=== PATIENT | male | born 1985 | race Caucasian/White ===

== ENCOUNTER 2016-11-22 14:13 | Observation (INO) | payer OTHER ==
[2016-11-22 14:22] VITALS: RESP 18; TEMP 97.8; BMI 31.6
[2016-11-22] MEDS ORDERED: Morphine 4 mg/ml ISec IVP STA (15:48)
--- NOTE | 2016-11-22 15:49 | ED PDOC ---
Arrival/HPI <Charli Caldwell - Last Filed: 11/22/16 21:07> - General Historian: Patient - History of Present Illness Time/Duration: < week Symptom Onset: Gradual Symptom Course: Unchanged Severity Level: Mild Activities at Onset: Rest Context: Home <Timmy Rossi - Last Filed: 12/03/16 10:10> - General Chief Complaint: GI Problem Time Seen by Provider: 11/22/16 14:48 - History of Present Illness Narrative History of Present Illness (Text): 11/22/16 14:55 Heidi Rasmussen is a 31 year old male, whose past medical history includes appendicitis, appendectomy, and a partial small bowel obstruction, who presents to the emergency department complaining of constipation for four fays. Patient notes that he has not had a bowel movement in the last four days as well. Patient also experiences associated headache and nausea. Patient denies any fever, vomiting, urinary symptoms, or any other complaint at this time. PMD: None (Timmy Rossi) Past Medical History - Provider Review Nursing Documentation Reviewed: Yes - Infectious Disease Hx of Infectious Diseases: None - Tetanus Immunization Tetanus Immunization: Unknown - Reproductive Currently : No - Cardiac Hx Cardiac Disorders: No - Pulmonary Hx Respiratory Disorders: No - Neurological Hx Neurological Disorder: No - HEENT Hx HEENT Disorder: No - Renal Hx Renal Disorder: No - Endocrine/Metabolic Hx Endocrine Disorders: No - Hematological/Oncological Hx Blood Transfusions: No Hx Blood Transfusion Reaction: No - Integumentary Hx Dermatological Disorder: No - Musculoskeletal/Rheumatological Hx Musculoskeletal Disorders: No Hx Falls: No - Gastrointestinal Hx Gastrointestinal Disorders: No - Genitourinary/Gynecological Hx Genitourinary Disorders: No - Psychiatric Hx Psychophysiologic Disorder: No Hx Substance Use: No - Surgical History Hx Appendectomy: Yes - Anesthesia Hx Anesthesia: Yes Hx Anesthesia Reactions: No Hx Malignant Hyperthermia: No <Timmy Rossi - Last Filed: 12/03/16 10:10> Family/Social History - Physician Review Nursing Documentation Reviewed: Yes Family/Social History: No Known Family HX Smoking Status: Never Smoked Hx Alcohol Use: No Hx Substance Use: No <Timmy Rossi - Last Filed: 12/03/16 10:10> Allergies/Home Meds <Charli Caldwell - Last Filed: 11/22/16 21:07> <Timmy Rossi Y - Last Filed: 12/03/16 10:10> Allergies/Adverse Reactions: Allergies No Known Allergies Allergy (Verified 11/22/16 14:22) Review of Systems - Review of Systems Constitutional: absent: Fevers, Night Sweats Eyes: absent: Vision Changes ENT: absent: Hearing Changes Respiratory: absent: SOB Cardiovascular: absent: Chest Pain Gastrointestinal: Constipation, Nausea. absent: Abdominal Pain, Vomiting Genitourinary Male: absent: Urinary Output Changes Musculoskeletal: absent: Back Pain, Neck Pain Skin: absent: Pruritis Neurological: absent: Dizziness Endocrine: absent: Polyuria Hemo/Lymphatic: absent: Easy Bleeding Psychiatric: absent: Depression <Timmy Rossi Y - Last Filed: 12/03/16 10:10> Physical Exam Vital Signs Reviewed: Yes Temperature: Afebrile Blood Pressure: Normal Pulse: Regular Respiratory Rate: Normal Appearance: Positive for: Well-Appearing, Non-Toxic, Comfortable Pain Distress: None Mental Status: Positive for: Alert and Oriented X 3 - Systems Exam Head: Present: Atraumatic, Normocephalic Pupils: Present: PERRL Extroacular Muscles: Present: EOMI Conjunctiva: Present: Normal Mouth: Present: Moist Mucous Membranes Neck: Present: Normal Range of Motion Respiratory/Chest: Present: Clear to Auscultation, Good Air Exchange. No: Respiratory Distress, Accessory Muscle Use Cardiovascular: Present: Regular Rate and Rhythm, Normal S1, S2. No: Murmurs Abdomen: Present: Tenderness (Slgiht suprapubic tenderness) Back: Present: Normal Inspection Upper Extremity: Present: Normal Inspection. No: Cyanosis, Edema Lower Extremity: Present: Normal Inspection. No: Edema Neurological: Present: GCS=15, CN II-XII Intact, Speech Normal Skin: Present: Warm, Dry, Normal Color. No: Rashes Psychiatric: Present: Alert, Oriented x 3, Normal Insight, Normal Concentration <Timmy Rossi Y - Last Filed: 12/03/16 10:10> Vital Signs Temp Pulse Resp BP Pulse Ox 11/22/16 21:00 60 18 113/76 98 11/22/16 19:30 57 L 18 118/81 99 11/22/16 16:36 61 18 128/98 H 99 11/22/16 14:17 97.8 F 66 18 110/68 98 ED OBSERVATION Discharge: Yes <Charli Caldwell - Last Filed: 11/22/16 21:07> Date of observation admission: 11/22/16 Time of observation admission: 14:55 <Timmy Rossi - Last Filed: 12/03/16 10:10> - Observation admission statement Patient is being placed in observation because:: Impression: 31 year old male complaining of constipation for four days. (Timmy Rossi) - Goals of Observation Goals of observation are:: Plan: -- EKG -- Abdomen and Pelvis CT w/ CT -- Urine culture, Urinalysis -- Labs -- Tylenol. Pepcid, Morphine, Zofran, and Fleet Enema -- Reassess and disposition Prior Visits: Notes and results from previous visits were reviewed. Patient last seen in ED on 03/21/16 for abdominal pain and headache for one day. Patient was admitted to hospitalist care for further evaluation. (Timmy Rossi) - Progress Note Progress Note: 11/22/16 19:45 sign out from day shift to follow up CT pt with abd pain and hx of prior surgeries on examination, abd soft/nt/nd with positive bowel sounds in all 4 q's and no peritoneal signs CT result pending pt's friend translating per his request 11/22/16 20:47 No acute findings on CT result, as per [facility] On reevaluation, patient reports that he feels much better and would like to be discharged home. Patient's repeat abdominal exam is soft, nontender, non distended with positive bowel sounds in all 4 quadrants and no peritoneal signs. Patient is tolerating PO without any difficulty. Pt denies any FRIAS at this time, has no focal neurological deficits on evaluation Pt states he understands to return to the ER right away for new or worsening symptoms or for inability to f/u with PMD or specialist as instructed. Patient states that he fully agrees with and understands discharge instructions. States that he agrees with the plan and disposition. Verbalized and repeated discharge instructions and plan. I have given the patient opportunity to ask any additional questions. (Charli Caldwell) Reviewed labs, results are normal. 11/22/16 18:40 On re-evaluation, the patient feels better and is in no acute distress. I have discussed the results and plan with the patient, who expresses understanding. Patient in agreement with plan to discharged home. Patient is stable for discharge. Patient was instructed to follow up with physician/clinic in 1-2 days or return if symptoms worsen or new concerning symptoms arise. (Timmy Rossi) <Charli Caldwell - Last Filed: 11/22/16 21:07> - Scribe Statement The provider has reviewed the documentation as recorded by the Scribe <Timmy Rossi - Last Filed: 12/03/16 10:10> - Scribe Statement Amee Lozoya Provider Scribe Attestation: All medical record entries made by the Scribe were at my direction and personally dictated by me. I have reviewed the chart and agree that the record accurately reflects my personal performance of the history, physical exam, medical decision making, and the department course for this patient. I have also personally directed, reviewed, and agree with the discharge instructions and disposition. (Timmy Rossi) Disposition/Present on Arrival - Present on Arrival Any Indicators Present on Arrival: No - Disposition Have Diagnosis and Disposition been Completed?: Yes Disposition Time: 14:00 Patient Plan: Discharge <Charli Caldwell - Last Filed: 11/22/16 21:07> - Present on Arrival History of DVT/PE: No History of Uncontrolled Diabetes: No Urinary Catheter: No History of Decub. Ulcer: No History Surgical Site Infection Following: None - Disposition Have Diagnosis and Disposition been Completed?: Yes Disposition Time: 15:00 <Timmy Rossi - Last Filed: 12/03/16 10:10> - Disposition Diagnosis: Abdominal pain Disposition: HOME/ ROUTINE Condition: GOOD
[2016-11-22] MEDS ORDERED: Iohexol 240 (50 ml) ONE (16:15)
[2016-11-22 16:35] LABS: URINE BILIRUBIN NEGATIVE (NEGATIVE); URINE BLOOD NEGATIVE (NEGATIVE); URINE GLUCOSE (UA) NEGATIVE (NEGATIVE); URINE KETONE NEGATIVE (NEGATIVE); URINE LEUKOCYTE ESTERASE NEGATIVE Leu/uL (NEGATIVE); URINE PROTEIN TRACE mg/dL (<30 mg/dL); URINE UROBILINOGEN 0.2 E.U./dL (<1 E.U./dL)
[2016-11-22 16:39] LABS: ADD MANUAL DIFF? NO
[2016-11-22 16:42] LABS: BASO # 0.02 K/mm3 (0.0-2.0); BASO % 0.3 % (0.0-3.0); EOS # 0.3 (0.0-0.7); EOS % 4.3 % (1.5-5.0); GRAN % 51.2 % (50.0-68.0); HEMATOCRIT 43.9 % (42.0-52.0); LYMPH # 2.5 (1.2-3.4); LYMPH % 35.8 % (22.0-35.0); MEAN CELL VOLUME 81.6 fL (80.0-105.0); MEAN CORPUSCULAR HEMOGLOBIN 29.4 pg (25.0-35.0); MONO # 0.6 (0.1-0.6); MONO % 8.4 % (1.0-6.0); PLATELET COUNT 291 10^3/uL (120.0-450.0); RED CELL DISTRIBUTION WIDTH 12.6 % (11.5-14.5)
[2016-11-22 16:44] LABS: URINE APPEARANCE CLEAR (CLEAR); URINE COLOR YELLOW (YELLOW)
[2016-11-22 16:55] LABS: URINE BACTERIA TRACE (NEG); URINE CALCIUM OXALATE CRYSTALS OCC /hpf; URINE EPITHELIAL CELLS 0 - 2 /hpf (0-5); URINE RBC 0 - 2 /hpf (0-2); URINE WBC 0 - 2 /hpf (0-6)
[2016-11-22 16:56] LABS: ALB/GLOB RATIO 1.4 (1.1-1.8); ALKALINE PHOSPHATASE 58 U/L (38-133); ALT/SGPT 32 U/L (7-56); AST/SGOT 31 U/L (15-59); BILIRUBIN,TOTAL 0.7 mg/dL (0.2-1.3); BLOOD UREA NITROGEN 20 mg/dL (7-21); CALCIUM 9.8 mg/dL (8.4-10.5); CARBON DIOXIDE 29 mmol/L (21-33); CHLORIDE 104 mmol/L (98-107); GFR AFRICAN-AMERICAN > 60; GLUCOSE,RANDOM 88 mg/dL (70-110); POTASSIUM 4.1 mmol/L (3.6-5.0); SODIUM 142 mmol/L (132-148); TOTAL PROTEIN 7.8 g/dL (5.8-8.3)
--- NOTE | 2016-11-22 18:16 | CARD ---
APPROVED REPORT EKG Measurement Heart [id number] <Conclusion> Sinus bradycardia Otherwise normal ECG
--- NOTE | 2016-11-22 20:22 | CT ---
EXAM: CT Abdomen and Pelvis With Intravenous Contrast CLINICAL HISTORY: 31 years old, male; Pain; Abdominal pain; Prior surgery; Surgery type: Appendectomy TECHNIQUE: Axial computed tomography images of the abdomen and pelvis with intravenous contrast. This CT exam was performed using one or more of the following dose reduction techniques: automated exposure control, adjustment of the mA and/or kV according to patient size, and/or use of iterative reconstruction technique. Coronal and sagittal reformatted images were created and reviewed. CONTRAST: 96 mL of OMNI 350 administered intravenously. EXAM DATE/TIME: 11/22/2016 3:49 PM COMPARISON: Prior CT abdomen and pelvis of 03/21/2016 FINDINGS: LIMITATIONS: Exam is limited by mild to moderate streak/motion artifact. LOWER THORAX: No infiltrate seen in the lung bases. ABDOMEN: LIVER: No acute abnormality of the liver identified. GALLBLADDER AND BILE DUCTS: No CT evidence of acute cholecystitis. No evidence of significant biliary ductal dilatation. PANCREAS: No CT evidence of acute pancreatitis. SPLEEN: No acute abnormality of the spleen identified. ADRENALS: No acute abnormality of the adrenal glands identified. KIDNEYS AND URETERS: No acute abnormality of the kidneys identified. No evidence of significant hydrouereteronephrosis. STOMACH AND BOWEL: No acute abnormality of the stomach or duodenum identified. No evidence of small bowel obstruction. No acute abnormality of the colon identified. APPENDIX: Normal appendix is not seen, and there are post operative changes involving the cecum compatible with the given history of previous appendectomy. PELVIS: BLADDER: No acute abnormality of the bladder identified. REPRODUCTIVE: No acute abnormality of the reproductive organs is seen. ABDOMEN and PELVIS: INTRAPERITONEAL SPACE: No evidence of free intraperitoneal air or fluid. BONES/JOINTS: Mild anterior wedge deformity of T12, stable in appearance, most likely secondary to a mild, chronic compression fracture. No acute fractures are seen. SOFT TISSUES: No acute abnormality of the visualized soft tissues is seen. VASCULATURE: No evidence of abdominal aortic aneurysm. No evidence of periaortic hemorrhage. LYMPH NODES: No evidence of diffuse lymphadenopathy. IMPRESSION: - No evidence of significant acute process. No definite cause for pain identified. - See above for remaining findings.
[2016-11-22 21:28] VITALS: BP 113/76; PULSE 60; O2SAT 98
== END 2016-11-22 20:53 | disposition home or self-care (01) ==
LOC: ED 14:13 → EROBSV 15:51
PROVIDERS: ADMIT Emergency Medicine; ATTEND Emergency Medicine
DX: R10.9 Unspecified abdominal pain (principal)
CPT/HCPCS: 74177; 80053; 81001; 85025; 87086; 93005; 96374; 96375; 99284; G0378; J2270; J2405; Q9966

== ENCOUNTER 2017-07-14 18:58 | Emergency (ER) | payer OTHER ==
[2017-07-14 18:58] VITALS: BMI 31.6
--- NOTE | 2017-07-14 19:16 | ED PDOC ---
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 No cough congestion or URI. No fever or chills. No injury or trauma. He has never experienced this previously. No abdominal pain nausea vomiting or diarrhea. Past Medical History - Infectious Disease Hx of Infectious Diseases: None - Tetanus Immunization Tetanus Immunization: Unknown - Cardiac Hx Cardiac Disorders: No - Pulmonary Hx Respiratory Disorders: No - Neurological Hx Neurological Disorder: No - HEENT Hx HEENT Disorder: No - Renal Hx Renal Disorder: No - Endocrine/Metabolic Hx Endocrine Disorders: No - Hematological/Oncological Hx Blood Transfusions: No Hx Blood Transfusion Reaction: No - Integumentary Hx Dermatological Disorder: No - Musculoskeletal/Rheumatological Hx Musculoskeletal Disorders: No Hx Falls: No - Gastrointestinal Hx Gastrointestinal Disorders: No - Genitourinary/Gynecological Hx Genitourinary Disorders: No - Psychiatric Hx Psychophysiologic Disorder: No Hx Substance Use: No - Surgical History Hx Appendectomy: Yes - Anesthesia Hx Anesthesia: Yes Hx Anesthesia Reactions: No Hx Malignant Hyperthermia: No Family/Social History - Physician Review Nursing Documentation Reviewed: Yes Family/Social History: Unknown Family HX Smoking Status: Never Smoked Hx Alcohol Use: No Hx Substance Use: No Allergies/Home Meds Allergies/Adverse Reactions: Allergies No Known Allergies Allergy (Verified 07/14/17 19:15) Review of Systems - Physician Review All systems were reviewed & negative as marked: Yes - Review of Systems Constitutional: absent: Fatigue, Fevers Respiratory: SOB. absent: Cough, Sputum, Wheezing Cardiovascular: Chest Pain. absent: Palpitations, Syncope Gastrointestinal: absent: Abdominal Pain, Diarrhea, Nausea, Vomiting Neurological: absent: Headache, Dizziness Physical Exam Vital Signs Temp Pulse Resp BP Pulse Ox 07/14/17 19:03 97.6 F 94 H 18 157/84 H 97 07/14/17 19:00 17 Temperature: Afebrile Blood Pressure: Hypertensive Pulse: Regular Respiratory Rate: Normal Appearance: Positive for: Well-Appearing, Non-Toxic, Comfortable, Other ( Splinting during breathing) Pain Distress: None Mental Status: Positive for: other (Awake alert and cooperative) - Systems Exam Head: Present: Atraumatic, Normocephalic Pupils: Present: PERRL Extroacular Muscles: Present: EOMI Conjunctiva: Present: Normal Ears: Present: NORMAL TM, Normal Canal. No: Erythema Mouth: Present: Moist Mucous Membranes Pharnyx: No: ERYTHEMA, EXUDATE, TONSILS ENLARGED Neck: Present: Normal Range of Motion Respiratory/Chest: Present: Clear to Auscultation, Good Air Exchange, Decreased Breath Sounds. No: Respiratory Distress, Accessory Muscle Use Cardiovascular: Present: Regular Rate and Rhythm, Normal S1, S2. No: Murmurs Abdomen: Present: Normal Bowel Sounds. No: Tenderness, Distention, Peritoneal Signs, Rebound, Guarding Back: Present: Normal Inspection. No: CVA Tenderness Upper Extremity: Present: Normal Inspection. No: Cyanosis, Edema Lower Extremity: Present: Normal Inspection. No: Edema Neurological: Present: GCS=15, CN II-XII Intact, Speech Normal, Motor Func Grossly Intact Skin: Present: Warm, Dry, Normal Color. No: Rashes Medical Decision Making ED Course and Treatment: 07/14/17 19:17 EKG shows normal sinus rhythm rate approximately [address] or T-wave changes 07/14/17 20:45 Symptoms have resolved. Discharge home with roommate. Follow-up with PMD. Follow -up in ER as needed. - Lab Interpretations Lab Results: 07/14/17 19:20 07/14/17 19:20 Lab Results 07/14/17 19:20: Sodium 142, Potassium 3.9, Chloride 104, Carbon Dioxide 27, Anion Gap 15, BUN 21, Creatinine 0.8, Est GFR ( Amer) > 60, Est GFR (Non- Af Amer) > 60, Random Glucose 119 H, Calcium 9.7, Total Bilirubin 0.5, AST 27, ALT 30, Alkaline Phosphatase 54, Lactate Dehydrogenase 319 L, Total Creatine Kinase 87, Troponin I < 0.01, NT-Pro-B Natriuret Pep < 11.1, Total Protein 8.0, Albumin 4.6, Globulin 3.3, Albumin/Globulin Ratio 1.4 07/14/17 19:20: PT 11.8, INR 1.03, APTT 34.6, D-Dimer, Quantitative < 200 07/14/17 19:20: WBC 7.2, RBC 5.48, Hgb 15.6, Hct 44.5, MCV 81.2, MCH 28.5, MCHC 35.1, RDW 12.7, Plt Count 271, MPV 10.3, Gran % 49.0 L, Lymph % (Auto) 37.7 H, [place] % (Auto) 9.1 H, Eos % (Auto) 3.9, Baso % (Auto) 0.3, Gran # 3.54, Lymph # 2.7, [place] # 0.7 H, Eos # 0.3, Baso # 0.02 - RAD Interpretation Radiology Orders: 07/14/17 19:16 CHEST PORTABLE [RAD] Stat Chest 1 view shows no infiltrate effusion cardiomegaly or pneumothorax Product Safety Coordinator: ED Physician - Medication Orders Current Medication Orders: Discontinued Medications Ketorolac Tromethamine (Toradol) 30 mg IVP ONCE ONE Stop: 07/14/17 19:18 Last Admin: 07/14/17 19:34 Dose: 30 mg MAR Pain Assessment Document 07/14/17 19:34 AB (Rec: 07/14/17 19:35 AB [id number]) Pain Reassessment Is this a pain reassessment? Yes Sleep Is patient sleeping during reassessment? No Presence of Pain Presence of Pain Yes Pain Scale Used Pain Scale Used Numeric Location Pain Location Body Site Chest Description Description Constant Intensity of Pain at present 6 Pain Behavior Guarding Aggravating Factors ADL's Alleviating Factors/Management Medication Techniques Alleviating Factors Medication IVP Administration Document 07/14/17 19:34 AB (Rec: 07/14/17 19:35 AB [id number]) Charges for Administration # of IVP Administrations 1 Disposition/Present on Arrival - Present on Arrival Any Indicators Present on Arrival: No History of DVT/PE: No History of Uncontrolled Diabetes: No Urinary Catheter: No History of Decub. Ulcer: No History Surgical Site Infection Following: None - Disposition Have Diagnosis and Disposition been Completed?: Yes Diagnosis: Pleurisy Disposition: HOME/ ROUTINE Disposition Time: 20:46 Patient Plan: Discharge Condition: IMPROVED Discharge Instructions (ExitCare): Pleurisy (ED) Prescriptions: Naproxen [Naprosyn] 500 mg PO BID #14 tab Forms: [employer] ([place])
[2017-07-14 19:58] LABS: HEMOGLOBIN 15.6 g/dL (14.0-18.0); MEAN CELL VOLUME 81.2 fl (80.0-105.0); MEAN CORPUSCULAR HEMOGLOBIN 28.5 pg (25.0-35.0); MEAN CORPUSCULAR HGB CONC 35.1 g/dl (31.0-37.0); MEAN PLATELET VOLUME 10.3 fl (7.0-11.0); RBC 5.48 10^6/uL (3.5-6.1); RED CELL DISTRIBUTION WIDTH 12.7 % (11.5-14.5); WHITE BLOOD COUNT 7.2 10^3/ul (4.5-11.0)
[2017-07-14 19:59] LABS: BASO # 0.02 K/mm3 (0.0-2.0); BASO % 0.3 % (0.0-3.0); EOS # 0.3 (0.0-0.7); EOS % 3.9 % (1.5-5.0); GRAN # 3.54 (1.4-6.5); LYMPH # 2.7 (1.2-3.4); LYMPH % 37.7 % (22.0-35.0); MONO # 0.7 (0.1-0.6); MONO % 9.1 % (1.0-6.0)
[2017-07-14 20:00] LABS: ALB/GLOB RATIO 1.4 (1.1-1.8); ALBUMIN 4.6 g/dL (3.0-4.8); ALT/SGPT 30 U/L (7-56); AST/SGOT 27 U/L (17-59); BLOOD UREA NITROGEN 21 mg/dL (7-21); CALCIUM 9.7 mg/dL (8.4-10.5); GFR AFRICAN-AMERICAN > 60; GFR NON-AFRICAN AMERICAN > 60
[2017-07-14 20:07] LABS: INR 1.03 (0.93-1.08); PARTIAL THROMBOPLASTIN TIME 34.6 Seconds (25.1-36.5); PROTHROMBIN TIME 11.8 SECONDS (9.4-12.5)
[2017-07-14 20:10] LABS: B-TYPE NATRIURETIC PEPTIDE < 11.1 pg/mL (0-450)
[2017-07-14 20:14] LABS: TROPONIN I < 0.01 ng/mL
[2017-07-14 20:26] LABS: D DIMER < 200 ng/mL (0-243)
[2017-07-14 20:55] VITALS: BP 150/72; PULSE 80; RESP 16; TEMP 98.2; O2SAT 100
--- NOTE | 2017-07-15 09:01 | RAD ---
HISTORY: Chest pain COMPARISON: 11/19/2015. FINDINGS: LUNGS: The lungs are clear. PLEURA: No significant pleural effusion identified, no pneumothorax apparent. CARDIOVASCULAR: Normal. OSSEOUS STRUCTURES: No significant abnormalities. VISUALIZED UPPER ABDOMEN: Normal. OTHER FINDINGS: None. IMPRESSION: No active pulmonary disease.
--- NOTE | 2017-07-15 16:53 | CARD ---
APPROVED REPORT EKG Measurement Heart [id number] <Conclusion> Normal sinus rhythm Normal ECG
== END 2017-07-14 20:55 | disposition home or self-care (01) ==
LOC: ED 18:58
DX: R09.1 Pleurisy (principal)
CPT/HCPCS: 71045; 80053; 82550; 83615; 83880; 84484; 85025; 85378; 85610; 85730; 93005; 96374; 99283; J1885

== ENCOUNTER 2017-10-08 21:39 | Emergency (ER) | payer OTHER ==
[2017-10-08 21:52] VITALS: BMI 25.7
[2017-10-08 21:57] VITALS: BP 121/77; PULSE 66; RESP 18; TEMP 97.6; O2SAT 97
--- NOTE | 2017-10-08 22:12 | ED PDOC ---
Arrival/HPI - General Chief Complaint: Abnormal Skin Integrity Time Seen by Provider: 10/08/17 22:08 Historian: Patient - History of Present Illness Narrative History of Present Illness (Text): 10/08/17 22:12 Heidi Méndez is a 32 year old male who presents to the Emergency department complaining of a left thumb laceration. Patient states he accidentally sliced his left thumb while using a knife prior to arrival. Patient denies any decreased range of motion, weakness/numbness/tingling in the extremity, or any other complaints. Time/Duration: Prior to Arrival Symptom Onset: Sudden Symptom Course: Unchanged Activities at Onset: Light Past Medical History - Provider Review Nursing Documentation Reviewed: Yes - Infectious Disease Hx of Infectious Diseases: None - Tetanus Immunization Tetanus Immunization: Unknown - Cardiac Hx Cardiac Disorders: No - Pulmonary Hx Respiratory Disorders: No - Neurological Hx Neurological Disorder: No - HEENT Hx HEENT Disorder: No - Renal Hx Renal Disorder: No - Endocrine/Metabolic Hx Endocrine Disorders: No - Hematological/Oncological Hx Blood Transfusions: No Hx Blood Transfusion Reaction: No - Integumentary Hx Dermatological Disorder: No - Musculoskeletal/Rheumatological Hx Musculoskeletal Disorders: No Hx Falls: No - Gastrointestinal Hx Gastrointestinal Disorders: No - Genitourinary/Gynecological Hx Genitourinary Disorders: No - Psychiatric Hx Psychophysiologic Disorder: No Hx Substance Use: No - Surgical History Hx Appendectomy: Yes - Anesthesia Hx Anesthesia: Yes Hx Anesthesia Reactions: No Hx Malignant Hyperthermia: No Family/Social History - Physician Review Nursing Documentation Reviewed: Yes Family/Social History: Unknown Family HX Smoking Status: Never Smoked Hx Alcohol Use: No Hx Substance Use: No Allergies/Home Meds Allergies/Adverse Reactions: Allergies No Known Allergies Allergy (Verified 10/08/17 21:52) Review of Systems - Physician Review All systems were reviewed & negative as marked: Yes - Review of Systems Constitutional: Normal. absent: Fevers Eyes: Normal ENT: Normal Respiratory: Normal. absent: SOB, Cough Cardiovascular: Normal. absent: Chest Pain Gastrointestinal: Normal. absent: Abdominal Pain, Diarrhea, Nausea, Vomiting Genitourinary Male: Normal. absent: Dysuria, Frequency, Hematuria, Urinary Output Changes, Other Musculoskeletal: Normal. absent: Back Pain, Neck Pain Skin: Laceration (+left thumb laceration) Neurological: Normal. absent: Headache, Dizziness Endocrine: Normal Hemo/Lymphatic: Normal Psychiatric: Normal Physical Exam Vital Signs Reviewed: Yes Vital Signs Temp Pulse Resp BP Pulse Ox 10/08/17 21:56 97.6 F 66 18 121/77 97 Temperature: Afebrile Blood Pressure: Normal Pulse: Regular Respiratory Rate: Normal Appearance: Positive for: Well-Appearing, Non-Toxic, Comfortable Pain Distress: None Mental Status: Positive for: Alert and Oriented X 3 - Systems Exam Head: Present: Atraumatic, Normocephalic Pupils: Present: PERRL Extroacular Muscles: Present: EOMI Conjunctiva: Present: Normal Mouth: Present: Moist Mucous Membranes Neck: Present: Normal Range of Motion Upper Extremity: Present: Normal ROM, NORMAL PULSES, Neurovascularly Intact, Capillary Refill < 2s, Other (2.5 cm laceration lateral aspect of left thumb). No: Cyanosis, Edema, Tenderness, Swelling, Erythema, Temperature Abnormalties, Deformity Lower Extremity: Present: Normal Inspection. No: Edema Neurological: Present: GCS=15, CN II-XII Intact, Speech Normal Skin: Present: Warm, Dry, Normal Color. No: Rashes Psychiatric: Present: Alert, Oriented x 3, Normal Insight, Normal Concentration Medical Decision Making ED Course and Treatment: 10/08/17 22:12 Impression: 32 year old male complaining of a left thumb laceration Differential Diagnosis included but are not limited to: laceration Plan: -- Laceration Repair -- Reassess and disposition Progress Notes: 10/08/17 22:41 PROCEDURE: LACERATION REPAIR Performed by the emergency provider Location: Left thumb Length: 4 cm Description: clean wound edges, no foreign bodies Distal CMS: Normal. No deficits. Neurovascularly intact. Anesthesia: Lidocaine 1% Preparation: The wound was cleaned with NS and [place]. The area was prepped and draped in the usual sterile fashion. Exploration: The wound was explored and no foreign bodies were found. Procedure: The wound was closed with 5-0 proline, non-absorbable. There was good approximation. In total, 4 stitches were used. Post-Procedure: Good closure and hemostasis. The patient tolerated the procedure well and there were no complications. CSM remains intact. Post procedure dressing applied. 10/08/17 23:20 On re-evaluation, patient feels better and is in no acute distress. Patient in agreement with plan to be discharged home. Patient is stable for discharge. Patient was instructed to follow up with physician or return if symptoms worsen or new concerning symptoms arise. - Scribe Statement The provider has reviewed the documentation as recorded by the Marina García Provider Scribe Attestation: All medical record entries made by the Scribe were at my direction and personally dictated by me. I have reviewed the chart and agree that the record accurately reflects my personal performance of the history, physical exam, medical decision making, and the department course for this patient. I have also personally directed, reviewed, and agree with the discharge instructions and disposition. Disposition/Present on Arrival - Present on Arrival Any Indicators Present on Arrival: No History of DVT/PE: No History of Uncontrolled Diabetes: No Urinary Catheter: No History of Decub. Ulcer: No History Surgical Site Infection Following: None - Disposition Have Diagnosis and Disposition been Completed?: Yes Diagnosis: Laceration of thumb, left Disposition: HOME/ ROUTINE Disposition Time: 23:20 Condition: IMPROVED Discharge Instructions (ExitCare): Laceration Repair, Wound Care (DC), Common Finger Injuries (DC) Additional Instructions: suture removal in 7 days Forms: [facility] ([place]ic), WORK NOTE
[2017-10-08] MEDS ORDERED: Lidocaine 1% Inj (20ml) ONE (22:27)
== END 2017-10-08 23:20 | disposition home or self-care (01) ==
LOC: ED 21:39
DX: S61.012A Laceration without foreign body of left thumb without damage to nail, initial encounter (principal); W26.0XXA Contact with knife, initial encounter; Y92.89 Other specified places as the place of occurrence of the external cause; Y99.8 Other external cause status

== ENCOUNTER 2017-10-18 14:15 | Emergency (ER) | payer OTHER ==
[2017-10-18 14:15] VITALS: BMI 25.7
[2017-10-18 14:23] VITALS: BP 126/79; PULSE 77; RESP 16; TEMP 97.6; O2SAT 98
[2017-10-18] MEDS ORDERED: TDAP Vaccine 0.5 mL Syr IM ONE (14:48)
--- NOTE | 2017-10-18 14:48 | ED PDOC ---
Arrival/HPI - General Chief Complaint: Suture/Staple Removal Time Seen by Provider: 10/18/17 14:43 Historian: Patient - History of Present Illness Narrative History of Present Illness (Text): 10/18/17 14:44 32 y/o male, here for the suture removal from the left thumb s/p sutured about 10 days ago. Pt. has no numbness or tingling, no fever or chills, stated that the wound has been dry and clean. Pt. stated that he needs tetanus as it has been over 10 years. Pt. has no difficulty moving the lt. hand thumb, no other medical or psychological complaints. Past Medical History - Provider Review Nursing Documentation Reviewed: Yes - Infectious Disease Hx of Infectious Diseases: None - Tetanus Immunization Tetanus Immunization: Unknown - Cardiac Hx Cardiac Disorders: No - Pulmonary Hx Respiratory Disorders: No - Neurological Hx Neurological Disorder: No - HEENT Hx HEENT Disorder: No - Renal Hx Renal Disorder: No - Endocrine/Metabolic Hx Endocrine Disorders: No - Hematological/Oncological Hx Blood Transfusions: No Hx Blood Transfusion Reaction: No - Integumentary Hx Dermatological Disorder: No - Musculoskeletal/Rheumatological Hx Musculoskeletal Disorders: No Hx Falls: No - Gastrointestinal Hx Gastrointestinal Disorders: No - Genitourinary/Gynecological Hx Genitourinary Disorders: No - Psychiatric Hx Psychophysiologic Disorder: No Hx Substance Use: No - Surgical History Hx Appendectomy: Yes - Anesthesia Hx Anesthesia: Yes Hx Anesthesia Reactions: No Hx Malignant Hyperthermia: No Family/Social History - Physician Review Nursing Documentation Reviewed: Yes Family/Social History: Unknown Family HX Smoking Status: Never Smoked Hx Alcohol Use: No Hx Substance Use: No Allergies/Home Meds Allergies/Adverse Reactions: Allergies No Known Allergies Allergy (Verified 10/18/17 14:18) Home Medications: Home Meds Medication Instructions Recorded Confirmed No Known Home Med 10/18/17 10/18/17 Review of Systems - Review of Systems Constitutional: absent: Fatigue, Fevers Eyes: absent: Vision Changes Respiratory: absent: SOB, Cough Cardiovascular: absent: Chest Pain Gastrointestinal: absent: Abdominal Pain, Nausea, Vomiting Musculoskeletal: absent: Arthralgias Skin: absent: Rash Neurological: absent: Headache Psychiatric: absent: Anxiety, Depression Physical Exam Vital Signs Reviewed: Yes Vital Signs Temp Pulse Resp BP Pulse Ox 10/18/17 14:18 97.6 F 77 16 126/79 98 Temperature: Afebrile Blood Pressure: Normal Pulse: Regular Respiratory Rate: Normal Appearance: Positive for: Well-Appearing, Non-Toxic, Comfortable Pain Distress: None Mental Status: Positive for: Alert and Oriented X 3 - Systems Exam Head: Present: Atraumatic, Normocephalic Pupils: Present: PERRL Extroacular Muscles: Present: EOMI Conjunctiva: Present: Normal Mouth: Present: Moist Mucous Membranes Neck: Present: Normal Range of Motion Respiratory/Chest: Present: Clear to Auscultation, Good Air Exchange. No: Respiratory Distress, Accessory Muscle Use Cardiovascular: Present: Regular Rate and Rhythm, Normal S1, S2. No: Murmurs Abdomen: No: Tenderness, Distention, Peritoneal Signs Back: Present: Normal Inspection Upper Extremity: Present: Normal Inspection, Other (Lt. hand thumb: visible 4 prolene sutured on the dry healed wound, no cellulitis or streaking, no ulcers, FROM without limitation, sensation intact, motor 5/5, +radial pulse, capillary refill, 2 seconds, neurovascular intact). No: Cyanosis, Edema Lower Extremity: Present: Normal Inspection. No: Edema Neurological: Present: GCS=15, CN II-XII Intact, Speech Normal Skin: Present: Warm, Dry, Normal Color. No: Rashes Psychiatric: Present: Alert, Oriented x 3, Normal Insight, Normal Concentration Medical Decision Making ED Course and Treatment: 10/18/17 14:51 -tdap -4 sutures removed, no more sutures remained on the left thumb, healing well and dry. -Discharge home with education on following up with your own pmd and hand specialist within 2 days, return to the ER for any new or worsening signs or symptoms. - PA / [employer] / Resident Statement MD/DO has reviewed & agrees with the documentation as recorded. Disposition/Present on Arrival - Present on Arrival Any Indicators Present on Arrival: No History of DVT/PE: No History of Uncontrolled Diabetes: No Urinary Catheter: No History of Decub. Ulcer: No History Surgical Site Infection Following: None - Disposition Have Diagnosis and Disposition been Completed?: Yes Diagnosis: Visit for suture removal, Immunization, tetanus-diphtheria Disposition: HOME/ ROUTINE Disposition Time: 14:52 Patient Plan: Discharge Condition: GOOD Additional Instructions: -Discharge home with education on following up with your own pmd and hand specialist within 2 days, return to the ER for any new or worsening signs or symptoms. Referrals: [facility] at [facility] [place] [Outside] - Follow up with primary Forms: WORK NOTE
== END 2017-10-18 15:05 | disposition home or self-care (01) ==
LOC: ED 14:15
DX: Z48.02 Encounter for removal of sutures (principal); Z23 Encounter for immunization

== ENCOUNTER 2017-11-24 15:39 | Emergency (ER) | payer OTHER ==
[2017-11-24 15:40] VITALS: BMI 25.7
[2017-11-24 15:55] VITALS: O2SAT 100
[2017-11-24] MEDS ORDERED: Sodium Chloride 0.9% 1,000 ML IV STA (16:11)
--- NOTE | 2017-11-24 16:15 | ED PDOC ---
Arrival/HPI - General Chief Complaint: GI Problem Time Seen by Provider: 11/24/17 15:56 Historian: Patient - History of Present Illness Narrative History of Present Illness (Text): you were treated in the ED today for hx of appendectomy, with small bowel obstruction afterwards and now having nausea, abdomen bloating and haven't had a bowel movement in a day with pain with urination but otherwise without any nausea/vomiting/headache/dizziness/difficulty breathing/chest pain/abdomen pain/ numbness/tingling/loss of limb function/pain with urination. Time/Duration: 24 hours Symptom Onset: Gradual Symptom Course: Unchanged Quality: Aching Severity Level: 1 Activities at Onset: Rest Context: Sitting Past Medical History - Provider Review Nursing Documentation Reviewed: Yes - Travel History Have you recently traveled outside [place] w/in the past 3 mons?: No - Infectious Disease Hx of Infectious Diseases: None - Tetanus Immunization Tetanus Immunization: Unknown - Cardiac Hx Cardiac Disorders: No - Pulmonary Hx Respiratory Disorders: No - Neurological Hx Neurological Disorder: No - HEENT Hx HEENT Disorder: No - Renal Hx Renal Disorder: No - Endocrine/Metabolic Hx Endocrine Disorders: No - Hematological/Oncological Hx Blood Transfusions: No Hx Blood Transfusion Reaction: No - Integumentary Hx Dermatological Disorder: No - Musculoskeletal/Rheumatological Hx Musculoskeletal Disorders: No Hx Falls: No - Gastrointestinal Hx Gastrointestinal Disorders: No - Genitourinary/Gynecological Hx Genitourinary Disorders: No - Psychiatric Hx Psychophysiologic Disorder: No Hx Substance Use: No - Surgical History Hx Appendectomy: Yes - Anesthesia Hx Anesthesia: Yes Hx Anesthesia Reactions: No Hx Malignant Hyperthermia: No Family/Social History - Physician Review Nursing Documentation Reviewed: Yes Family/Social History: Unknown Family HX Smoking Status: Never Smoked Hx Alcohol Use: No Hx Substance Use: No Allergies/Home Meds Allergies/Adverse Reactions: Allergies No Known Allergies Allergy (Verified 11/24/17 15:55) Review of Systems - Review of Systems Constitutional: Normal Eyes: Normal ENT: Normal Respiratory: Normal Cardiovascular: Normal Gastrointestinal: Abdominal Pain, Constipation Genitourinary Male: Dysuria Musculoskeletal: Normal Skin: Normal Neurological: Normal Endocrine: Normal Hemo/Lymphatic: Normal Psychiatric: Normal Physical Exam Vital Signs Reviewed: Yes Vital Signs Temp Pulse Resp BP Pulse Ox 11/24/17 15:53 98.3 F 67 18 100 11/24/17 15:40 98.3 F 67 16 127/62 100 Temperature: Afebrile Blood Pressure: Hypertensive Pulse: Regular Respiratory Rate: Normal Appearance: Positive for: Well-Appearing, Non-Toxic, Comfortable Pain Distress: None Mental Status: Positive for: Alert and Oriented X 3 - Systems Exam Head: Present: Atraumatic, Normocephalic Pupils: Present: PERRL Extroacular Muscles: Present: EOMI Conjunctiva: Present: Normal Ears: Present: Normal Mouth: Present: Moist Mucous Membranes Pharnyx: Present: Normal Nose (External): Present: Atraumatic Nose (Internal): Present: Normal Inspection Neck: Present: Normal Range of Motion Respiratory/Chest: Present: Clear to Auscultation Cardiovascular: Present: Regular Rate and Rhythm Abdomen: No: Tenderness, Distention, Normal Bowel Sounds, Peritoneal Signs, Rebound, Guarding, McBurney's Point Tender, Rovsing's Sign Present, Hernias, Feeding Tubes, Ostomy Tubes, Mass/Organomegaly, Scars, Other Back: Present: Normal Inspection Upper Extremity: Present: Normal Inspection Lower Extremity: Present: Normal Inspection Neurological: Present: GCS=15, CN II-XII Intact, Speech Normal, Motor Func Grossly Intact Skin: Present: Warm, Normal Color Psychiatric: Present: Alert, Oriented x 3, Normal Insight, Normal Concentration Medical Decision Making ED Course and Treatment: you were treated in the ED today for hx of appendectomy, with small bowel obstruction afterwards and now having nausea, abdomen bloating and haven't had a bowel movement in a day with pain with urination but otherwise without any nausea/vomiting/headache/dizziness/difficulty breathing/chest pain/abdomen pain/ numbness/tingling/loss of limb function/pain with urination/testicular or scrotal or penis pain or discharge. You were otherwise breathing easily, pink moist lips, talking easily, good strength/sensation, alert/oriented, walking easily, clear lungs, no abdomen tenderness, no fever temp 98.3, stable heart rate 67, stable breathing rate 16, excellent oxygen level 100% room air, elevated blood pressure 127/62 which we recommend repeat in 2-3 days primary care office to determine further treatment, you have blood tests no infection count 6, stable blood level hemoglobin 15/platelets 294, stable chemistry, lipase 62 normal, urine test no acute sign of infection; protein/blood in urine , radiology ct abdomen/pelvis passage of kidney stone, saline, zofran, colace, toradol, observation done in the ED with improvement, counselled to drink lots of fluids for hydration and thus discharged home. 1. Recommend colace as directed for stool softener. 2. Recommend flomax to ensure good passage of urine. Recommend motrin as directed for pain. 3. Recommend follow-up primary care 2-3 days to review symptoms, get final urine culture report to determine further treatment, referral to urology for protein/blood in urine/renal stones/ bladder wall thickening/columnization of the ureter to ensure no complications/ cancer development, referral to gastroenterology for mildly enlarged liver/ constipation to ensure no complications, referral to cardiology for mildly enlarged heart to ensure no complications/further care, referral to surgery for enlarged spleen/mesenteric lymph nodes to ensure no complications/cancer development, referral to spine clinic for 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 4. If any worsening pain, fever, chills, nausea, vomiting, difficulty breathing, numbness , loss of limb function, pain with urination or any medical condition then return to the ED. 11/24/17 18:10 Reassessment Condition: Re-examined, Improved - Lab Interpretations Lab Results: 11/24/17 16:20 11/24/17 16:20 Lab Results 11/24/17 16:53: Urine Color Yellow, Urine Appearance Clear, Urine pH 6.0, Ur Specific [place] >= 1.030, Urine Protein Trace H, Urine Glucose (UA) Negative, Urine Ketones Negative, Urine Blood Large H, Urine Nitrate Negative, Urine Bilirubin Negative, Urine Urobilinogen 0.2, Ur Leukocyte Esterase Negative, Urine RBC 25 - 30, Urine WBC 1 - 3, Ur Epithelial Cells None, Urine Bacteria Mod 11/24/17 16:20: Sodium 143, Potassium 4.2, Chloride 103, Carbon Dioxide 28, Anion Gap 16, BUN 16, Creatinine 0.8, Est GFR ( Amer) > 60, Est GFR (Non- Af Amer) > 60, Random Glucose 101, Calcium 9.2, Magnesium 2.1, Total Bilirubin 0.6, AST 20, ALT 26, Alkaline Phosphatase 56, Total Protein 8.0, Albumin 4.7, Globulin 3.3, Albumin/Globulin Ratio 1.4, Lipase 62 11/24/17 16:20: PT 12.1, INR 1.06, APTT 33.8 11/24/17 16:20: WBC 6.5, RBC 5.28, Hgb 15.0, Hct 42.5, MCV 80.5, MCH 28.4, MCHC 35.3, RDW 12.4, Plt Count 294, MPV 9.8, Gran % 48.5 L, Lymph % (Auto) 40.2 H, [place] % (Auto) 7.8 H, Eos % (Auto) 3.2, Baso % (Auto) 0.3, Gran # 3.15, Lymph # ( Auto) 2.6, [place] # (Auto) 0.5, Eos # (Auto) 0.2, Baso # (Auto) 0.02 I have reviewed the lab results: Yes - RAD Interpretation Radiology Orders: 11/24/17 16:48 ABD & PELVIS IV CONTRAST ONLY [CT] Stat Float Nurse: Radiologist (see mdm) - Medication Orders Current Medication Orders: Discontinued Medications Sodium Chloride (Sodium Chloride 0.9%) 1,000 mls @ 1,000 mls/hr IV .Q1H STA Stop: 11/24/17 17:10 Last Admin: 11/24/17 16:22 Dose: 1,000 mls/hr eMAR Start Stop Document 11/24/17 16:22 SRE (Rec: 11/24/17 16:22 SRE [id number]) Intravenous Solution Start Date 11/24/17 Start Time 16:15 End Date 11/24/17 End time 17:15 Total Infusion Time 60 Ondansetron HCl (Zofran Inj) 4 mg IVP STAT STA Stop: 11/24/17 16:12 Last Admin: 11/24/17 16:21 Dose: 4 mg IVP Administration Document 11/24/17 16:21 SRE (Rec: 11/24/17 16:21 SRE [id number]) Charges for Administration # of IVP Administrations 1 Disposition/Present on Arrival - Present on Arrival Any Indicators Present on Arrival: No History of DVT/PE: No History of Uncontrolled Diabetes: No Urinary Catheter: No History of Decub. Ulcer: No History Surgical Site Infection Following: None - Disposition Have Diagnosis and Disposition been Completed?: Yes Diagnosis: Constipation, Renal stone Disposition: HOME/ ROUTINE Disposition Time: 18:11 Patient Plan: Discharge Condition: IMPROVED Discharge Instructions (ExitCare): Kidney Stones (DC), Constipation, Adult (DC) Additional Instructions: you were treated in the ED today for hx of appendectomy, with small bowel obstruction afterwards and now having nausea, abdomen bloating and haven't had a bowel movement in a day with pain with urination but otherwise without any nausea/vomiting/headache/dizziness/difficulty breathing/chest pain/abdomen pain/ numbness/tingling/loss of limb function/pain with urination/testicular or scrotal or penis pain or discharge. You were otherwise breathing easily, pink moist lips, talking easily, good strength/sensation, alert/oriented, walking easily, clear lungs, no abdomen tenderness, no fever temp 98.3, stable heart rate 67, stable breathing rate 16, excellent oxygen level 100% room air, elevated blood pressure 127/62 which we recommend repeat in 2-3 days primary care office to determine further treatment, you have blood tests no infection count 6, stable blood level hemoglobin 15/platelets 294, stable chemistry, lipase 62 normal, urine test no acute sign of infection; protein/blood in urine , radiology ct abdomen/pelvis passage of kidney stone, saline, zofran, colace, toradol, observation done in the ED with improvement, counselled to drink lots of fluids for hydration and thus discharged home. 1. Recommend colace as directed for stool softener. 2. Recommend flomax to ensure good passage of urine. Recommend motrin as directed for pain. 3. Recommend follow-up primary care 2-3 days to review symptoms, get final urine culture report to determine further treatment, referral to urology for protein/blood in urine/renal stones/ bladder wall thickening/columnization of the ureter to ensure no complications/ cancer development, referral to gastroenterology for mildly enlarged liver/ constipation to ensure no complications, referral to cardiology for mildly enlarged heart to ensure no complications/further care, referral to surgery for enlarged spleen/mesenteric lymph nodes to ensure no complications/cancer development, referral to spine clinic for 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 4. If any worsening pain, fever, chills, nausea, vomiting, difficulty breathing, numbness , loss of limb function, pain with urination or any medical condition then return to the ED. Prescriptions: Docusate [Colace] 100 mg PO Q8 PRN 10 Days #30 cap PRN Reason: stool soft Ibuprofen [Motrin Tab] 800 mg PO Q8 PRN 10 Days #30 tab PRN Reason: Pain, Mild (1-3) Tamsulosin HCl [Flomax] 0.4 mg PO DAILY 10 Days #10 cap.er.24h Referrals: PCP,NO [Primary Care Provider] - Follow up with primary Forms: [employer] (Irish), WORK NOTE
[2017-11-24 16:42] LABS: ALB/GLOB RATIO 1.4 (1.1-1.8); ALBUMIN 4.7 g/dL (3.0-4.8); ALT/SGPT 26 U/L (7-56); AST/SGOT 20 U/L (17-59); BLOOD UREA NITROGEN 16 mg/dL (7-21); CALCIUM 9.2 mg/dL (8.4-10.5); GFR AFRICAN-AMERICAN > 60; GFR NON-AFRICAN AMERICAN > 60; LIPASE 62 U/L (23-300)
[2017-11-24] MEDS ORDERED: Iohexol 350 MG/100 ML VIAL ONE (16:58)
[2017-11-24 17:11] LABS: BASO # 0.02 K/mm3 (0.0-2.0); BASO % 0.3 % (0.0-3.0); EOS # 0.2 (0.0-0.7); EOS % 3.2 % (1.5-5.0); GRAN # 3.15 (1.4-6.5); GRAN % 48.5 % (50.0-68.0); LYMPH # 2.6 (1.2-3.4); LYMPH % 40.2 % (22.0-35.0); MEAN CELL VOLUME 80.5 fl (80.0-105.0); MEAN CORPUSCULAR HEMOGLOBIN 28.4 pg (25.0-35.0); MEAN CORPUSCULAR HGB CONC 35.3 g/dl (31.0-37.0); MEAN PLATELET VOLUME 9.8 fl (7.0-11.0); MONO # 0.5 (0.1-0.6); MONO % 7.8 % (1.0-6.0); RBC 5.28 10^6/uL (3.5-6.1); RED CELL DISTRIBUTION WIDTH 12.4 % (11.5-14.5); WHITE BLOOD COUNT 6.5 10^3/ul (4.5-11.0)
[2017-11-24 17:16] LABS: URINE BILIRUBIN NEGATIVE (NEGATIVE); URINE BLOOD LARGE (NEGATIVE); URINE GLUCOSE (UA) NEGATIVE (NEGATIVE); URINE LEUKOCYTE ESTERASE NEGATIVE Leu/uL (NEGATIVE); URINE PROTEIN TRACE mg/dL (<30 mg/dL); URINE UROBILINOGEN 0.2 E.U./dL (<1 E.U./dL)
[2017-11-24 17:20] LABS: INR 1.06 (0.93-1.08); PARTIAL THROMBOPLASTIN TIME 33.8 Seconds (25.1-36.5); PROTHROMBIN TIME 12.1 SECONDS (9.4-12.5)
[2017-11-24 17:21] LABS: URINE APPEARANCE CLEAR (CLEAR); URINE COLOR YELLOW (YELLOW)
[2017-11-24 17:31] LABS: URINE BACTERIA MOD (NEG); URINE RBC 25 - 30 /hpf (0-2)
--- NOTE | 2017-11-24 17:33 | CT ---
PROCEDURE: CT abdomen and pelvis dated 11/24/2017 HISTORY: 32y year-old male with abdomen bloating/pain. Evaluate. COMPARISON: Comparison made with prior study 11/22/2017 TECHNIQUE: Contiguous axial images of the abdomen and pelvis performed following intravenous injection of approximately 100 cc Omnipaque 350 contrast material. Additional 2D sagittal and coronal reformats generated. Radiation dose: Total exam DLP = 268.9 mGy-cm. This CT exam was performed using one or more of the following dose reduction techniques: Automated exposure control, adjustment of the mA and/or kV according to patient size, and/or use of iterative reconstruction technique. . FINDINGS: LOWER THORAX: Mild passive/dependent type atelectasis both lung bases. No evidence of focal consolidation. No effusion or basilar pneumothorax. Heart size is mildly enlarged. No significant pericardial effusion. Tiny hiatal hernia. LIVER: Liver is upper limits of normal/ borderline enlarged measuring nearly 19 cm in CC dimension. No obvious hepatic mass or collection. Portal and splenic veins are opacified. GALLBLADDER AND BILE DUCTS: Gallbladder is physiologically distended. No evidence of intraluminal gallbladder calculi. PANCREAS: The pancreas appears unremarkable as well without mass collection or calcification. No significant pancreatic ductal dilatation. SPLEEN: The spleen is enlarged measuring approximately 14 cm in CC dimension. No obvious splenic mass collection or calcification. ADRENALS: U there are no adrenal lesions. . KIDNEYS AND URETERS: Kidneys demonstrate symmetric nephrograms. No evidence of nephrolithiasis or hydronephrosis. BLADDER: There is a tiny approximately 3 mm calcific density within the right parasagittal posterior margin of the lumen of the urinary bladder of likely representing a recently passed calculus. Clinical correlation with urinalysis recommended. Urinary bladder is incompletely distended which in part accounts for thick-walled appearance. Muscular hypertrophy may contribute however the possibility of a cystitis should also be excluded with urinalysis. REPRODUCTIVE: Unremarkable. APPENDIX: Unremarkable. BOWEL: Evaluation of the bowel is limited due to the lack of oral contrast material. The stomach is incompletely distended which presumably accounts for thick-walled appearance. Gastritis not excluded. Visualized loops of small bowel exhibit normal contour and caliber. No evidence acute mechanical small bowel obstruction. Large amount of stool seen within cecum, ascending and transverse colon consistent with fecal retention/ constipation. Most of the left colon is collapsed. . No definitive mural wall thickening PERITONEUM: Unremarkable. No fluid collection. No free air. LYMPH NODES: Note made of multiple small nonspecific mesenteric lymph nodes. The possibility of a nonspecific mesenteric adenitis should be considered. VASCULATURE: Unremarkable. No aortic aneurysm. 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 Minor multilevel degenerative spondylosis of the lower thoracic and lumbar spine. OTHER FINDINGS: None. IMPRESSION: Splenomegaly. Borderline/mild hepatomegaly. Mild columnization of the right ureter. In addition, there is a small 3 mm calcification within the right parasagittal posterior margin of the urinary bladder likely representing a recently passed calculus however clinical correlation with recent history. Mild bladder wall thickening likely due to incomplete distention however cystitis not excluded. Correlation with urinalysis is also recommended to further evaluate the aforementioned findings. See above discussion for additional findings and details.
[2017-11-24 18:22] VITALS: BP 106/73; PULSE 84; RESP 16; TEMP 97.9
== END 2017-11-24 18:22 | disposition home or self-care (01) ==
LOC: ED 15:39
DX: N20.0 Calculus of kidney (principal); K59.00 Constipation, unspecified
CPT/HCPCS: 74177; 80053; 81001; 83690; 83735; 85025; 85610; 85730; 87086; 96361; 96374; 96375; 99283; J1885; J2405; J7030; Q9967

== ENCOUNTER 2018-01-06 20:24 | Emergency (ER) | payer OTHER ==
[2018-01-06 20:27] VITALS: RESP 18; TEMP 98.6; O2SAT 98; BMI 22.6
[2018-01-06] MEDS ORDERED: Sodium Chloride 0.9% 1,000 ML IV STA (20:32)
[2018-01-06 21:06] LABS: BASO # 0.03 K/mm3 (0.0-2.0); BASO % 0.3 % (0.0-3.0); EOS # 0.2 (0.0-0.7); EOS % 2.5 % (1.5-5.0); GRAN # 5.33 (1.4-6.5); GRAN % 54.5 % (50.0-68.0); HEMOGLOBIN 15.5 g/dL (14.0-18.0); LYMPH # 3.4 (1.2-3.4); LYMPH % 34.6 % (22.0-35.0); MEAN CELL VOLUME 79.1 fl (80.0-105.0); MEAN CORPUSCULAR HEMOGLOBIN 28.9 pg (25.0-35.0); MEAN CORPUSCULAR HGB CONC 36.5 g/dl (31.0-37.0); MONO # 0.8 (0.1-0.6); MONO % 8.1 % (1.0-6.0); RBC 5.37 10^6/uL (3.5-6.1); RED CELL DISTRIBUTION WIDTH 12.6 % (11.5-14.5); WHITE BLOOD COUNT 9.8 10^3/ul (4.5-11.0)
[2018-01-06 21:18] LABS: ALB/GLOB RATIO 1.3 (1.1-1.8); ALBUMIN 4.6 g/dL (3.0-4.8); ALT/SGPT 34 U/L (7-56); AST/SGOT 24 U/L (17-59); BLOOD UREA NITROGEN 14 mg/dL (7-21); CALCIUM 9.7 mg/dL (8.4-10.5); GFR AFRICAN-AMERICAN > 60; GFR NON-AFRICAN AMERICAN > 60; LIPASE 108 U/L (23-300)
--- NOTE | 2018-01-06 21:18 | ED PDOC ---
Arrival/HPI - General Chief Complaint: GI Problem Time Seen by Provider: 01/06/18 20:32 Historian: Patient - History of Present Illness Narrative History of Present Illness (Text): 01/06/18 22:25 32yo male with no Past medical history who present with 2days history of generalized crampy abdominal pain with associated nausea, vomiting and constipation. He reports one episode of nonbloody/bilious vomiting today. States his last BM was 4days ago. He reports history of similar symptoms in the past. He denies fever, chills, melena, hematemesis, chest pain, urinary symptoms , sick contact, any other complaint. PT is s/p appendectomy 3years ago. Past Medical History - Provider Review Nursing Documentation Reviewed: Yes - Infectious Disease Hx of Infectious Diseases: None - Tetanus Immunization Tetanus Immunization: Unknown - Cardiac Hx Cardiac Disorders: No - Pulmonary Hx Respiratory Disorders: No - Neurological Hx Neurological Disorder: No - HEENT Hx HEENT Disorder: No - Renal Hx Renal Disorder: No - Endocrine/Metabolic Hx Endocrine Disorders: No - Hematological/Oncological Hx Blood Transfusions: No Hx Blood Transfusion Reaction: No - Integumentary Hx Dermatological Disorder: No - Musculoskeletal/Rheumatological Hx Musculoskeletal Disorders: No Hx Falls: No - Gastrointestinal Hx Gastrointestinal Disorders: No - Genitourinary/Gynecological Hx Genitourinary Disorders: No - Psychiatric Hx Psychophysiologic Disorder: No Hx Substance Use: No - Surgical History Hx Appendectomy: Yes - Anesthesia Hx Anesthesia: Yes Hx Anesthesia Reactions: No Hx Malignant Hyperthermia: No Family/Social History - Physician Review Nursing Documentation Reviewed: Yes Family/Social History: Unknown Family HX Smoking Status: Never Smoked Hx Alcohol Use: No Hx Substance Use: No Allergies/Home Meds Allergies/Adverse Reactions: Allergies No Known Allergies Allergy (Verified 01/06/18 20:29) Review of Systems - Physician Review All systems were reviewed & negative as marked: Yes - Review of Systems Constitutional: Normal Eyes: Normal ENT: Normal Respiratory: Normal Cardiovascular: Normal Gastrointestinal: Abdominal Pain, Constipation, Nausea, Vomiting. absent: Diarrhea, Hematochezia, Hematemesis Genitourinary Male: Normal Musculoskeletal: Normal Skin: Normal Neurological: Normal Endocrine: Normal Hemo/Lymphatic: Normal Psychiatric: Normal Physical Exam Vital Signs Reviewed: Yes Vital Signs Temp Pulse Resp BP Pulse Ox 01/06/18 22:48 76 18 122/80 98 01/06/18 20:26 98.6 F 74 18 124/85 98 Temperature: Afebrile Blood Pressure: Normal Pulse: Regular Respiratory Rate: Normal Appearance: Positive for: Well-Appearing, Non-Toxic, Comfortable Pain Distress: None Mental Status: Positive for: Alert and Oriented X 3 - Systems Exam Head: Present: Atraumatic, Normocephalic Pupils: Present: PERRL Extroacular Muscles: Present: EOMI Conjunctiva: Present: Normal Mouth: Present: Moist Mucous Membranes Neck: Present: Normal Range of Motion Respiratory/Chest: Present: Clear to Auscultation, Good Air Exchange. No: Respiratory Distress, Accessory Muscle Use Cardiovascular: Present: Regular Rate and Rhythm, Normal S1, S2. No: Murmurs Abdomen: Present: Tenderness (Diffuse), Normal Bowel Sounds (Hyperactive x4), Other (soft). No: Distention, Peritoneal Signs, Rebound, Guarding, McBurney's Point Tender, Rovsing's Sign Present Back: Present: Normal Inspection Upper Extremity: Present: Normal Inspection. No: Cyanosis, Edema Lower Extremity: Present: Normal Inspection. No: Edema Neurological: Present: GCS=15, CN II-XII Intact, Speech Normal Skin: Present: Warm, Dry, Normal Color. No: Rashes Psychiatric: Present: Alert, Oriented x 3, Normal Insight, Normal Concentration Medical Decision Making ED Course and Treatment: 01/07/18 00:16 Pt's symptom improved in emergency department with medication and hydration in ED. He was able to tolerate PO challenge. His labs was unremarkable Obstructive series - No air/fluid level. Fecal materials noted. He complained of headache in ED and was given Tylenol. He had no focal neurological deficit. All result was DW the pt. He was DC home with Miralax and pepcid rx. He was referred to a GI. advised TRT emergency department for any new or worsening symptoms - Lab Interpretations Lab Results: 01/06/18 20:55 01/06/18 20:55 Lab Results 01/06/18 21:25: Urine Color Yellow, Urine Appearance Clear, Urine pH 6.0, Ur Specific [place] 1.020, Urine Protein Negative, Urine Glucose (UA) Negative, Urine Ketones Negative, Urine Blood Negative, Urine Nitrate Negative, Urine Bilirubin Negative, Urine Urobilinogen 0.2, Ur Leukocyte Esterase Negative 01/06/18 20:55: Sodium 143, Potassium 4.0, Chloride 104, Carbon Dioxide 27, Anion Gap 17, BUN 14, Creatinine 0.9, Est GFR ( Amer) > 60, Est GFR (Non- Af Amer) > 60, Random Glucose 99, Calcium 9.7, Magnesium 2.0, Total Bilirubin 0.8, AST 24, ALT 34, Alkaline Phosphatase 59, Total Protein 8.2, Albumin 4.6, Globulin 3.6, Albumin/Globulin Ratio 1.3, Lipase 108 01/06/18 20:55: PT 11.6, INR 1.02, APTT 34.1 01/06/18 20:55: WBC 9.8 D, RBC 5.37, Hgb 15.5, Hct 42.5, MCV 79.1 L, MCH 28.9, MCHC 36.5, RDW 12.6, Plt Count 296, MPV 10.0, Gran % 54.5, Lymph % (Auto) 34.6, [place] % (Auto) 8.1 H, Eos % (Auto) 2.5, Baso % (Auto) 0.3, Gran # 5.33, Lymph # ( Auto) 3.4, [place] # (Auto) 0.8 H, Eos # (Auto) 0.2, Baso # (Auto) 0.03 - RAD Interpretation Radiology Orders: 01/06/18 21:05 obstructive [ABD 2 VIEWS (FLAT/UP OR DECUB)] [RAD] Stat - Medication Orders Current Medication Orders: Discontinued Medications Famotidine (Pepcid) 20 mg IVP STAT STA Stop: 01/06/18 20:33 Last Admin: 01/06/18 21:01 Dose: 20 mg IVP Administration Document 01/06/18 21:01 SS (Rec: 01/06/18 21:01 [id number]) Charges for Administration # of IVP Administrations 1 Sodium Chloride (Sodium Chloride 0.9%) 1,000 mls @ 1,000 mls/hr IV .Q1H STA Stop: 01/06/18 21:31 Last Admin: 01/06/18 21:01 Dose: 1,000 mls/hr eMAR Start Stop Document 01/06/18 21:01 SS (Rec: 01/06/18 21:01 [id number]) Intravenous Solution Start Date 01/06/18 Start Time 21:01 End Date 01/06/18 End time 22:01 Total Infusion Time 60 Ketorolac Tromethamine (Toradol) 30 mg IVP STAT STA Stop: 01/06/18 20:33 Last Admin: 01/06/18 21:01 Dose: 30 mg MAR Pain Assessment Document 01/06/18 21:01 SS (Rec: 01/06/18 21:02 SS [id number]) Pain Reassessment Is this a pain reassessment? No Sleep Is patient sleeping during reassessment? No Presence of Pain Presence of Pain Yes IVP Administration Document 01/06/18 21:01 SS (Rec: 01/06/18 21:02 SS [id number]) Charges for Administration # of IVP Administrations 1 Ondansetron HCl (Zofran Inj) 4 mg IVP STAT STA Stop: 01/06/18 20:33 Last Admin: 01/06/18 21:02 Dose: 4 mg IVP Administration Document 01/06/18 21:02 SS (Rec: 01/06/18 21:02 SS [id number]) Charges for Administration # of IVP Administrations 1 Sodium Phosphate (Fleet Enema) 135 ml RC STAT STA Stop: 01/06/18 22:32 Last Admin: 01/06/18 22:46 Dose: 135 ml Disposition/Present on Arrival - Present on Arrival Any Indicators Present on Arrival: No History of DVT/PE: No History of Uncontrolled Diabetes: No Urinary Catheter: No History of Decub. Ulcer: No History Surgical Site Infection Following: None - Disposition Have Diagnosis and Disposition been Completed?: Yes Diagnosis: Constipation, Abdominal pain, Headache Disposition: HOME/ ROUTINE Disposition Time: 22:30 Patient Plan: Discharge Condition: STABLE Discharge Instructions (ExitCare): Constipation, Adult (DC), Acute Abdomen ( Belly Pain), Adult (DC), Nausea and Vomiting, Adult (DC) Additional Instructions: Follow up with the clinic/Medical Staff Services Coordinator Return to emergency department for any new or worsening symptoms Prescriptions: Famotidine [Pepcid] 40 mg PO DAILY #15 tab Polyethylene Glycol 3350 [Miralax] 17 gm PO BID #100 powd.pack Referrals: Naz Curtis MD [Medical Doctor] - Follow up with primary Forms: [employer] (Malay)
[2018-01-06 21:26] LABS: INR 1.02 (0.93-1.08); PARTIAL THROMBOPLASTIN TIME 34.1 Seconds (25.1-36.5); PROTHROMBIN TIME 11.6 SECONDS (9.4-12.5)
[2018-01-06 22:04] LABS: URINE BILIRUBIN NEGATIVE (NEGATIVE); URINE BLOOD NEGATIVE (NEGATIVE); URINE GLUCOSE (UA) NEGATIVE (NEGATIVE); URINE LEUKOCYTE ESTERASE NEGATIVE Leu/uL (NEGATIVE); URINE PROTEIN NEGATIVE mg/dL (<30 mg/dL); URINE UROBILINOGEN 0.2 E.U./dL (<1 E.U./dL)
[2018-01-06 22:05] LABS: URINE APPEARANCE CLEAR (CLEAR); URINE COLOR YELLOW (YELLOW)
[2018-01-06 22:49] VITALS: BP 122/80; PULSE 76
--- NOTE | 2018-01-07 10:24 | RAD ---
Date of service: 01/06/2018 HISTORY: abdominal pain COMPARISON: No prior. FINDINGS: BOWEL: Normal. No obstruction. No free air. BONES: Normal. OTHER FINDINGS: None. IMPRESSION: No active disease.
== END 2018-01-06 22:49 | disposition home or self-care (01) ==
LOC: ED 20:24
DX: K59.00 Constipation, unspecified (principal); R10.9 Unspecified abdominal pain; R51 Headache
CPT/HCPCS: 74019; 80053; 81003; 83690; 83735; 85025; 85610; 85730; 96361; 96374; 96375; 99283; J1885; J2405; J7030

== ENCOUNTER 2018-01-08 16:21 | Emergency (ER) | payer OTHER ==
[2018-01-08] MEDS ORDERED: Sodium Chloride 0.9% 1,000 ML IV ONE (17:38)
[2018-01-08 17:40] VITALS: BMI 31.6
[2018-01-08 17:44] VITALS: RESP 18; TEMP 98.1
--- NOTE | 2018-01-08 17:59 | ED PDOC ---
Arrival/HPI - General Chief Complaint: GI Problem Time Seen by Provider: 01/08/18 17:05 - History of Present Illness Narrative History of Present Illness (Text): 32 year old male with PMH of appendectomy and partial SBO presents with burning abdominal pain under the umbilicus that radiates up to this throat, constipation , dysphagia to solids, and a feeling of a lump in his throat for 8 days. He has also had pain on the tip of his tongue and his bottom lip. He has had a sharp frontal headache for 8 days as well, which "does not let him work". He denies nausea, vomiting, photophobia, phonophobia, dizziness, heart palpitations, numbness or tingling. 01/08/18 17:44 (Tamiko Khan) Past Medical History - Provider Review Nursing Documentation Reviewed: Yes - Infectious Disease Hx of Infectious Diseases: None - Tetanus Immunization Tetanus Immunization: Unknown - Cardiac Hx Cardiac Disorders: No - Pulmonary Hx Respiratory Disorders: No - Neurological Hx Neurological Disorder: No - HEENT Hx HEENT Disorder: No - Renal Hx Renal Disorder: No - Endocrine/Metabolic Hx Endocrine Disorders: No - Hematological/Oncological Hx Blood Transfusions: No Hx Blood Transfusion Reaction: No - Integumentary Hx Dermatological Disorder: No - Musculoskeletal/Rheumatological Hx Musculoskeletal Disorders: No Hx Falls: No - Gastrointestinal Hx Gastrointestinal Disorders: No - Genitourinary/Gynecological Hx Genitourinary Disorders: No - Psychiatric Hx Psychophysiologic Disorder: No Hx Substance Use: No - Surgical History Hx Appendectomy: Yes Other/Comment: small bowel obstruction - Anesthesia Hx Anesthesia: Yes Hx Anesthesia Reactions: No Hx Malignant Hyperthermia: No Family/Social History - Physician Review Nursing Documentation Reviewed: Yes Family/Social History: Unknown Family HX Smoking Status: Never Smoked Hx Alcohol Use: No Hx Substance Use: No Allergies/Home Meds Allergies/Adverse Reactions: Allergies No Known Allergies Allergy (Verified 01/06/18 20:29) Review of Systems - Physician Review All systems were reviewed & negative as marked: Yes - Review of Systems Constitutional: Normal Eyes: Normal ENT: Other (tongue blister) Respiratory: SOB Cardiovascular: Chest Pain (burning) Gastrointestinal: Abdominal Pain (burning), Constipation Skin: Normal Neurological: Normal Physical Exam Vital Signs Reviewed: Yes Temperature: Afebrile Blood Pressure: Hypertensive Pulse: Regular Respiratory Rate: Normal Appearance: Positive for: Well-Appearing Mental Status: Positive for: Alert and Oriented X 3 - Systems Exam Head: Present: Atraumatic, Normocephalic Pupils: Present: PERRL Extroacular Muscles: Present: EOMI Conjunctiva: Present: Normal Mouth: Present: Other (blister on tip of tongue) Pharnyx: Present: Normal Nose (External): Present: Atraumatic Respiratory/Chest: Present: Clear to Auscultation Cardiovascular: Present: Regular Rate and Rhythm Abdomen: Present: Tenderness (tenderness under umbilicus), Other (negative Cueto's sign). No: Normal Bowel Sounds (hyperactive bowel sounds) Upper Extremity: Present: Normal Inspection, Normal ROM, NORMAL PULSES Lower Extremity: Present: Normal Inspection, NORMAL PULSES, Normal ROM Neurological: Present: GCS=15, CN II-XII Intact, Speech Normal Skin: Present: Warm, Dry, Normal Color Psychiatric: Present: Alert, Oriented x 3, Normal Insight, Normal Concentration Vital Signs Temp Pulse Resp BP Pulse Ox 01/08/18 21:28 80 18 134/72 98 01/08/18 17:43 98.1 F 82 18 144/78 99 01/08/18 16:21 98.6 F 85 18 130/78 99 Medical Decision Making ED Course and Treatment: Impression: 32 year old male presents with burning abdominal pain that radiates to the throat, pain at the tip of the tongue, and constipation. Assessment: Dx: Small bowel obstruction, GERD DDx: rule out pancreatitis, cholecystitis, gastroparesis, jossue urbano syndrome, esophageal spasm Plan: IV fluids with NS 0.9% 1L CBC CMP Lipase Magnesium Abdominal CT without contrast: No definite acute intraabdominal abnormality. Stomach and bowel: Moderate stool in colon. No definite mural thickening. Minimally distended loop of small bowel, likely ileus. 01/08/18 21:21 Patient will be discharged home with docusate to help him have a bowel movement. He will be encouraged to take orajel to relieve the pain of the ulcer on his tongue. He should follow up with the [facility] clinic in 1-2 days. (Tamiko Khan) 32 year old male presents with burning abdominal pain under the umbilicus that radiates up to this throat, constipation, dysphagia to solids, and a feeling of a lump in his throat for 8 days. Patient Seen With Resident: In agreement with resident note. Patient was seen and evaluated with resident, came up with plan and treatment together. (Gerson Inman DO) - Lab Interpretations Lab Results: 01/08/18 18:14 01/08/18 18:14 Lab Results 01/08/18 18:14: Sodium 143, Potassium 4.1, Chloride 105, Carbon Dioxide 27, Anion Gap 15, BUN 14, Creatinine 0.7 L, Est GFR ( Amer) > 60, Est GFR ( Non-Af Amer) > 60, Random Glucose 89, Calcium 9.4, Magnesium 2.2, Total Bilirubin 0.4, AST 25, ALT 24, Alkaline Phosphatase 60, Total Protein 7.9, Albumin 4.5, Globulin 3.4, Albumin/Globulin Ratio 1.3, Lipase 98 01/08/18 18:14: WBC 7.6 D, RBC 5.67, Hgb 16.3, Hct 45.3, MCV 79.9 L, MCH 28.7, MCHC 36.0, RDW 12.6, Plt Count 296, MPV 9.9, Gran % 52.6, Lymph % (Auto) 33.3, [place] % (Auto) 9.8 H, Eos % (Auto) 3.9, Baso % (Auto) 0.4, Gran # 4.00, Lymph # ( Auto) 2.5, [place] # (Auto) 0.8 H, Eos # (Auto) 0.3, Baso # (Auto) 0.03 - RAD Interpretation Radiology Orders: 01/08/18 17:37 ABD & PELVIS IV CONTRAST ONLY [CT] Stat - Medication Orders Current Medication Orders: Discontinued Medications Sodium Chloride (Sodium Chloride 0.9%) 1,000 mls @ 250 mls/hr IV .Q4H ONE Stop: 01/08/18 21:37 Last Admin: 01/08/18 18:12 Dose: 250 mls/hr eMAR Start Stop Document 01/08/18 18:12 SF (Rec: 01/08/18 18:12 SF [email or web address]) Intravenous Solution Start Date 01/08/18 Start Time 18:12 End Date 01/08/18 End time 22:12 Total Infusion Time 240 - PA / SENIOR ADVISORY / Resident Statement RANDOLPH has reviewed & agrees with the documentation as recorded. / has examined the patient and agrees with the treatment plan. Disposition/Present on Arrival - Present on Arrival Any Indicators Present on Arrival: No History of DVT/PE: No History of Uncontrolled Diabetes: No Urinary Catheter: No History of Decub. Ulcer: No History Surgical Site Infection Following: None - Disposition Have Diagnosis and Disposition been Completed?: Yes Disposition Time: 18:19 - Disposition Diagnosis: Constipation Disposition: HOME/ ROUTINE Condition: GOOD Discharge Instructions (ExitCare): Constipation, Adult (DC) Additional Instructions: PHILIP AVILA, thank you for letting us take care of you today. The emergency medical care you received today was directed at your acute symptoms. If you were prescribed any medication, please fill it and take as directed. It may take several days for your symptoms to resolve. Return to the Emergency Department if your symptoms worsen, do not improve, or if you have any other problems. Please contact your doctor or call one of the physicians/clinics you have been referred to that are listed on the Patient Visit Information form that is included in your discharge packet. Bring any paperwork you were given at discharge with you along with any medications you are taking to your follow up visit. Our treatment cannot replace ongoing medical care by a primary care provider outside of the emergency department. Thank you for allowing the [facility] team to be part of your care today. Follow up with our clinic this week for re-evaluation and further management. Prescriptions: Docusate [Colace] 100 mg PO Q8 PRN #1 udc PRN Reason: Constipation Referrals: Isabel Bermudez MD [Staff Provider] - Follow up with primary Forms: [employer] (Dominican)
[2018-01-08 18:27] LABS: BASO # 0.03 K/mm3 (0.0-2.0); BASO % 0.4 % (0.0-3.0); EOS # 0.3 (0.0-0.7); EOS % 3.9 % (1.5-5.0); GRAN % 52.6 % (50.0-68.0); HEMOGLOBIN 16.3 g/dL (14.0-18.0); LYMPH # 2.5 (1.2-3.4); LYMPH % 33.3 % (22.0-35.0); MEAN CELL VOLUME 79.9 fl (80.0-105.0); MEAN CORPUSCULAR HEMOGLOBIN 28.7 pg (25.0-35.0); MEAN PLATELET VOLUME 9.9 fl (7.0-11.0); MONO # 0.8 (0.1-0.6); MONO % 9.8 % (1.0-6.0); RBC 5.67 10^6/uL (3.5-6.1); RED CELL DISTRIBUTION WIDTH 12.6 % (11.5-14.5); WHITE BLOOD COUNT 7.6 10^3/ul (4.5-11.0)
[2018-01-08 18:37] LABS: ALB/GLOB RATIO 1.3 (1.1-1.8); ALBUMIN 4.5 g/dL (3.0-4.8); ALT/SGPT 24 U/L (7-56); AST/SGOT 25 U/L (17-59); BLOOD UREA NITROGEN 14 mg/dL (7-21); CALCIUM 9.4 mg/dL (8.4-10.5); GFR AFRICAN-AMERICAN > 60; GFR NON-AFRICAN AMERICAN > 60; LIPASE 98 U/L (23-300)
[2018-01-08] MEDS ORDERED: Iohexol 350 MG/100 ML VIAL ONE (19:43)
[2018-01-08 21:29] VITALS: BP 134/72; PULSE 80; O2SAT 98
--- NOTE | 2018-01-09 08:54 | CT ---
Date of service: 01/08/2018 PROCEDURE: CT Abdomen and Pelvis with contrast HISTORY: Diffuse abd pain r/o obstruction h/o SOB COMPARISON: 11/24/2017. TECHNIQUE: CT scan of the abdomen and pelvis was performed after administration of intravenous contrast. Oral contrast was not administered. Coronal and sagittal reformatted images were obtained. Contrast dose: 95 cc Omnipaque 350 Radiation dose: Total exam DLP = 346.81 mGy-cm. This CT exam was performed using one or more of the following dose reduction techniques: Automated exposure control, adjustment of the mA and/or kV according to patient size, and/or use of iterative reconstruction technique. FINDINGS: LOWER THORAX: There is bibasilar subsegmental atelectasis. LIVER: Normal in size with homogeneous enhancement. No gross lesion or ductal dilatation. GALLBLADDER AND BILE DUCTS: No calcified gallstones. PANCREAS: Normal in size with homogeneous enhancement. No gross lesion or ductal dilatation. SPLEEN: Normal in size with homogeneous enhancement. ADRENALS: No discrete nodule. KIDNEYS AND URETERS: Normal in size with homogeneous enhancement. No hydronephrosis. No solid mass. VASCULATURE: No aortic aneurysm. BOWEL: The small bowel loops are normal in caliber. There is moderate amount of stool in the colon. No bowel dilatation or obstruction. APPENDIX: Normal appendix. PERITONEUM: No free fluid. No free air. LYMPH NODES: No enlarged lymph nodes. BLADDER: Well distended and normal in appearance. REPRODUCTIVE: The prostate gland is normal in size. BONES: No acute fracture. Within normal limits for the patient's age. OTHER FINDINGS: There is mild bilateral gynecomastia. IMPRESSION: No acute abdominal or pelvic abnormality. Constipation. No bowel obstruction. A preliminary report was provided by [employer].
== END 2018-01-08 21:28 | disposition home or self-care (01) ==
LOC: ED 16:21
DX: K59.00 Constipation, unspecified (principal)
CPT/HCPCS: 74177; 80053; 83690; 83735; 85025; 96360; 96361; 99285; J7030; Q9967

== ENCOUNTER 2018-11-27 16:08 | Observation (INO) | payer MEDICAID, OTHER ==
[2018-11-27 16:08] VITALS: BMI 31.6
[2018-11-27] MEDS ORDERED: Sodium Chloride 0.9% 1,000 ML IV STA (18:00)
[2018-11-27 19:30] LABS: BASO # 0.02 K/mm3 (0.0-2.0); BASO % 0.2 % (0.0-3.0); EOS # 0.2 (0.0-0.7); EOS % 2.4 % (1.5-5.0); HEMOGLOBIN 16.3 g/dL (14.0-18.0); LYMPH # 2.9 (1.2-3.4); LYMPH % 32.8 % (22.0-35.0); MEAN CELL VOLUME 80.7 fl (80.0-105.0); MEAN CORPUSCULAR HEMOGLOBIN 28.5 pg (25.0-35.0); MEAN CORPUSCULAR HGB CONC 35.4 g/dl (31.0-37.0); MEAN PLATELET VOLUME 10.2 fl (7.0-11.0); MONO # 0.9 (0.1-0.6); MONO % 10.6 % (1.0-6.0); RBC 5.71 10^6/uL (3.5-6.1); RED CELL DISTRIBUTION WIDTH 12.3 % (11.5-14.5); WHITE BLOOD COUNT 8.8 10^3/uL (4.5-11.0)
[2018-11-27 19:43] LABS: INR 1.14; PARTIAL THROMBOPLASTIN TIME 36.6 Seconds (26.9-38.3); PROTHROMBIN TIME 12.6 SECONDS (9.4-12.5)
--- NOTE | 2018-11-27 19:49 | ED PDOC ---
Arrival/HPI - General Chief Complaint: Abdominal Pain Time Seen by Provider: 11/27/18 16:08 Historian: Patient - History of Present Illness Narrative History of Present Illness (Text): 33 y/o male with PMH of partial SBO, appendectomy presents to the ED c/o abdominal pain x 2 days. Pain is periumbilical, RLQ with associated constipation and nausea. One episode of nonbloody, nonbilious emesis this morning. Last BM 4 days ago. Also c/o ulceration to right lower inner lip and mild headache. Has not taken any medication for pain. Denies fever, chills, chest pain, SOB, cough, diarrhea, urinary symptoms, testicular pain, hematemesis, or any other associated symptoms. Past Medical History - Provider Review Nursing Documentation Reviewed: Yes - Infectious Disease Hx of Infectious Diseases: None - Tetanus Immunization Tetanus Immunization: Unknown - Cardiac Hx Cardiac Disorders: No - Pulmonary Hx Respiratory Disorders: No - Neurological Hx Neurological Disorder: No - HEENT Hx HEENT Disorder: No - Renal Hx Renal Disorder: No - Endocrine/Metabolic Hx Endocrine Disorders: No - Hematological/Oncological Hx Blood Transfusions: No Hx Blood Transfusion Reaction: No - Integumentary Hx Dermatological Disorder: No - Musculoskeletal/Rheumatological Hx Musculoskeletal Disorders: No Hx Falls: No - Gastrointestinal Hx Gastrointestinal Disorders: No - Genitourinary/Gynecological Hx Genitourinary Disorders: No - Psychiatric Hx Psychophysiologic Disorder: No Hx Substance Use: No - Surgical History Hx Appendectomy: Yes Other/Comment: small bowel obstruction - Anesthesia Hx Anesthesia: Yes Hx Anesthesia Reactions: No Hx Malignant Hyperthermia: No Family/Social History - Physician Review Nursing Documentation Reviewed: Yes Family/Social History: No Known Family HX Smoking Status: Never Smoked Hx Alcohol Use: No Hx Substance Use: No Allergies/Home Meds Allergies/Adverse Reactions: Allergies No Known Allergies Allergy (Verified 01/06/18 20:29) Review of Systems - Review of Systems Constitutional: Normal. absent: Fevers Eyes: Normal. absent: Vision Changes ENT: Normal. absent: Sore Throat, Sinus Congestion Respiratory: Normal. absent: SOB, Cough Cardiovascular: Normal. absent: Chest Pain, Palpitations Gastrointestinal: Abdominal Pain, Constipation, Vomiting, Appetite Changes Genitourinary Male: Normal. absent: Dysuria, Frequency Musculoskeletal: Normal. absent: Back Pain, Neck Pain Skin: Normal. absent: Rash, Pruritis Neurological: Headache. absent: Dizziness Physical Exam Vital Signs Reviewed: Yes Vital Signs Temp Pulse Resp BP Pulse Ox 11/27/18 19:32 98.8 F 68 18 97/66 L 97 11/27/18 16:45 98.9 F 60 19 109/77 98 Temperature: Afebrile Blood Pressure: Normal Pulse: Regular Respiratory Rate: Normal Appearance: Positive for: Well-Appearing, Non-Toxic, Comfortable Pain Distress: None Mental Status: Positive for: Alert and Oriented X 3 - Systems Exam Head: Present: Atraumatic, Normocephalic Pupils: Present: PERRL Extroacular Muscles: Present: EOMI Conjunctiva: Present: Normal Mouth: Present: Moist Mucous Membranes, Other (aphthous ulcer to right lower in ner lip). No: Drooling, Trismus Neck: Present: Normal Range of Motion Respiratory/Chest: Present: Clear to Auscultation, Good Air Exchange. No: Resp iratory Distress, Accessory Muscle Use Cardiovascular: Present: Regular Rate and Rhythm, Normal S1, S2, Peripheal Pulses Present Abdomen: Present: Tenderness (periumbilical), Normal Bowel Sounds. No: Distention, Peritoneal Signs Back: Present: Normal Inspection. No: CVA Tenderness Upper Extremity: Present: Normal Inspection, Normal ROM Lower Extremity: Present: Normal Inspection, Normal ROM. No: Edema Neurological: Present: GCS=15, Speech Normal, Motor Func Grossly Intact, Normal Sensory Function, Gait Normal Skin: Present: Warm, Dry, Normal Color. No: Rashes Psychiatric: Present: Alert, Oriented x 3, Normal Insight, Normal Concentration, Normal Affect, Normal Mood Medical Decision Making ED Course and Treatment: Initial Plan: * Labs * UA * CXR * EKG * Toradol, IVF 20:00 Bloodwork reviewed, remarkable for mildly elevated magnesium. Otherwise unremarkable. No leukocytosis or anemia. Patient care endorsed to HILTON Rios pending UA, CXR, CT Ab/Pelvis, reassessment and disposition. Pt resting comfortably in stretcher with stable vitals at this time. - Lab Interpretations Lab Results: PT 12.6 SECONDS (9.4-12.5) H 11/27/18 19:08 INR 1.14 11/27/18 19:08 APTT 36.6 Seconds (26.9-38.3) 11/27/18 19:08 I have reviewed the lab results: Yes Interpretation: All labs normal - RAD Interpretation Radiology Orders: 11/27/18 18:01 ABD & PELVIS IV CONTRAST ONLY [CT] Stat - EKG Interpretation EKG Interpretation (Text): 19:59 Rate 68; NSR; Normal intervals and axis; No STEMI or other signs of acute ischemia Interpreted by ED Physician: Yes Type: 12 lead EKG - Medication Orders Current Medication Orders: Discontinued Medications Sodium Chloride (Sodium Chloride 0.9%) 1,000 mls @ 999 mls/hr IV .Q1H1M STA Stop: 11/27/18 19:00 Last Admin: 11/27/18 19:28 Dose: 999 mls/hr eMAR Start Stop Document 11/27/18 19:28 LA (Rec: 11/27/18 19:29 LA [id number]) Intravenous Solution Start Date 11/27/18 Start Time 19:29 End Date 11/27/18 End time 20:30 Total Infusion Time 61 - Transfer of Care Patient signed out to Dr:: HILTON Rios Pending Labs:: UA Pending Radiology Studies:: CXR, CT Abd/Pelvis with IV contrast Disposition/Present on Arrival - Present on Arrival Any Indicators Present on Arrival: No History of DVT/PE: No History of Uncontrolled Diabetes: No Urinary Catheter: No History of Decub. Ulcer: No History Surgical Site Infection Following: None - Disposition Have Diagnosis and Disposition been Completed?: No Diagnosis: Abdominal pain Disposition Time: 20:00 Patient Problems: Current Active Problems Problem Status Onset Abdominal pain Acute Condition: STABLE
[2018-11-27 19:52] LABS: ALB/GLOB RATIO 1.2 (1.1-1.8); ALBUMIN 4.8 g/dL (3.0-4.8); ALT/SGPT 17 U/L (7-56); AST/SGOT 28 U/L (17-59); BLOOD UREA NITROGEN 17 mg/dL (7-21); CALCIUM 9.7 mg/dL (8.4-10.5); GFR NON-AFRICAN AMERICAN > 60; LIPASE 89 U/L (23-300)
[2018-11-27 20:03] LABS: TROPONIN I < 0.01 ng/mL
--- NOTE | 2018-11-27 20:08 | ED PDOC ---
Physical Exam Vital Signs Reviewed: Yes Vital Signs Temp Pulse Resp BP Pulse Ox 11/27/18 19:32 98.8 F 68 18 97/66 L 97 11/27/18 16:45 98.9 F 60 19 109/77 98 Temperature: Afebrile Blood Pressure: Normal Pulse: Regular Respiratory Rate: Normal Appearance: Positive for: Well-Appearing, Non-Toxic, Comfortable Pain Distress: None Mental Status: Positive for: Alert and Oriented X 3 - Systems Exam Head: Present: Atraumatic Mouth: Present: Moist Mucous Membranes Neck: Present: Normal Range of Motion Respiratory/Chest: Present: Clear to Auscultation, Good Air Exchange. No: Respiratory Distress, Accessory Muscle Use Cardiovascular: Present: Regular Rate and Rhythm, Normal S1, S2. No: Murmurs Abdomen: Present: Tenderness (+ minimal rlq and periumbilical tenderness), Normal Bowel Sounds, Guarding. No: Distention, Peritoneal Signs, Rebound Back: Present: Normal Inspection. No: Midline Tenderness, Paraspinal Tenderness Upper Extremity: Present: Normal ROM Lower Extremity: Present: Normal ROM Neurological: Present: GCS=15, Speech Normal Skin: Present: Warm, Dry, Normal Color. No: Rashes Psychiatric: Present: Alert, Oriented x 3 Medical Decision Making ED Course and Treatment: 11/27/18 20:00 received patient from HILTON Chung pending labs and CT. pt presents c/o abdominal pain with constipation x 4 days. pt states he spits up sputum every day for the past 2 years. pt denies fever/chills. no back pain. no urinary symptoms. 11/27/18 20:07 cbc; wnl cmp; wnl lipase; wnl UA: wnl CT: FINDINGS: LUNG BASES: The lung bases appear clear. No pleural effusions are seen. LIVER: Unremarkable. GALLBLADDER AND BILE DUCTS: The gallbladder appears within normal limits. No radioopaque gallstones are seen. No biliary ductal dilatation is evident. PANCREAS: Unremarkable. SPLEEN: Unremarkable. ADRENAL GLANDS: Unremarkable. KIDNEYS, URETERS, AND BLADDER: The kidneys appear within normal limits. There is no hydronephrosis or hydroureter. No urinary calculi are seen. The urinary bladder appears normal in size and configuration. STOMACH AND BOWEL: Unremarkable appearance of the stomach. No evidence of bowel obstruction. No evidence suggesting enteritis or colitis. APPENDIX: No evidence of acute appendicitis on CT examination. There appears to have been prior appendectomy. PERITONEUM: No free fluid. No free air. LYMPH NODES: No lymphadenopathy is evident. REPRODUCTIVE: Unremarkable as visualized. VASCULATURE: No evidence of abdominal aortic aneurysm. BONES: No aggressive appearing osseous lesion. No acute osseous pathology evident. IMPRESSION: No acute intra-abdominal or pelvic abnormality. Electronically signed on November 27, 2018 9:15:49 PM EDT by: Gerson Hugo M.D., M.B.A., Certified By [employer] Trained MRI and CT Specialist 11/27/18 21:27 pt reassessment; pt with continued severe abdominal tenderness. will admit obs to med/surg with surgical consult. case discussed with dr. maria. accepts obs status admission to med/surg with surgical consult. 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 impression; abdominal pain, intractable admit obs med/surg - Lab Interpretations Lab Results: PT 12.6 SECONDS (9.4-12.5) H 11/27/18 19:08 INR 1.14 11/27/18 19:08 APTT 36.6 Seconds (26.9-38.3) 11/27/18 19:08 Troponin I < 0.01 ng/mL 11/27/18 19:08 Total Bilirubin 0.9 mg/dL (0.2-1.3) 11/27/18 19:08 AST 28 U/L (17-59) 11/27/18 19:08 ALT 17 U/L (7-56) 11/27/18 19:08 Alkaline Phosphatase 68 U/L (38-126) 11/27/18 19:08 Total Protein 8.7 g/dL (5.8-8.3) H 11/27/18 19:08 Albumin 4.8 g/dL (3.0-4.8) 11/27/18 19:08 Globulin 3.9 gm/dL 11/27/18 19:08 Albumin/Globulin Ratio 1.2 (1.1-1.8) 11/27/18 19:08 Lipase 89 U/L (23-300) 11/27/18 19:08 - RAD Interpretation Radiology Orders: 11/27/18 18:01 ABD & PELVIS IV CONTRAST ONLY [CT] Stat 11/27/18 19:48 CHEST PORTABLE [RAD] Stat - Medication Orders Current Medication Orders: Discontinued Medications Sodium Chloride (Sodium Chloride 0.9%) 1,000 mls @ 999 mls/hr IV .Q1H1M STA Stop: 11/27/18 19:00 Last Admin: 11/27/18 19:28 Dose: 999 mls/hr eMAR Start Stop Document 11/27/18 19:28 LA (Rec: 11/27/18 19:29 LA [id number]) Intravenous Solution Start Date 11/27/18 Start Time 19:29 End Date 11/27/18 End time 20:30 Total Infusion Time 61 Ketorolac Tromethamine (Toradol) 15 mg IVP STAT STA Stop: 11/27/18 19:49 Disposition/Present on Arrival - Present on Arrival Any Indicators Present on Arrival: No History of DVT/PE: No History of Uncontrolled Diabetes: No Urinary Catheter: No History of Decub. Ulcer: No History Surgical Site Infection Following: None - Disposition Have Diagnosis and Disposition been Completed?: Yes Diagnosis: Abdominal pain Disposition: HOSPITALIZED Disposition Time: 23:00 Patient Plan: Observation Patient Problems: Current Active Problems Problem Status Onset Abdominal pain Acute Condition: FAIR
[2018-11-27] MEDS ORDERED: Iohexol 350 MG/100 ML VIAL ONE (20:28)
[2018-11-27 20:34] LABS: PH,URINE 7.5 (4.7-8.0); URINE BILIRUBIN NEGATIVE (NEGATIVE); URINE BLOOD NEGATIVE (NEGATIVE); URINE GLUCOSE (UA) NEGATIVE (NEGATIVE); URINE LEUKOCYTE ESTERASE NEGATIVE Leu/uL (NEGATIVE); URINE PROTEIN NEGATIVE mg/dL (<30 mg/dL); URINE UROBILINOGEN 0.2 E.U./dL (<1 E.U./dL)
[2018-11-27 20:35] LABS: URINE APPEARANCE CLEAR (CLEAR)
--- NOTE | 2018-11-28 00:12 | CP.PCM.HP ---
<IsaiahDillon - Last Filed: 11/28/18 02:16> History of Present Illness - History of Present Illness History of Present Illness: Dillon Colon, PGY1 H&P for Dr. Tommy strickland: "Yvette-umbilical abdominal pain x2 days, constipation, with oral ulcers" Patient is a 33 y/o Greek Speaking male with PMHx of partial SBO and appendectomy who presents to the ED c/o yvette-umbilical abdominal pain x 2 days, constipation, and oral ulcers. Patient says he gets oral ulcers in his mouth/tongue frequently, multiple times a month. Abdominal pain is located around his belly button and he does get associated constipation; he says these symptoms have occurred frequently in the past. He says abdominal pain worsens with eating and improves with fasting. He says sometimes he also gets blurry vision and headaches when his ulcers/abdominal pain occurs. However, he does not have pain with eye movements. Patient also endorsed x1 episode of nonbloody, nonbilious emesis this morning. He says his last bowel movement was 4 days ago. Denies fever, chills, chest pain, SOB, cough, diarrhea, bloody stools, urinary symptoms, hematemesis, unintentional weight loss, fatigue, night sweats, joint pain, genital lesions/sores. No recent travel, sick contacts, or new foods. Last hospitalization was on 03/2016 for SBO, patient was treated with conservative management. A full 12 point ROS was conducted and unremarkable except as stated above. 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 Denies smoking, EtOH, and illicit drug use. Allergies: NKDA Meds: none Present on Admission - Present on Admission Any Indicators Present on Admission: No Review of Systems - Review of Systems All systems: reviewed and no additional remarkable complaints except (as per HPI) Past Patient History - Infectious Disease Hx of Infectious Diseases: None - Tetanus Immunizations Tetanus Immunization: Unknown - Past Social History Smoking Status: Never Smoked - CARDIAC Hx Cardiac Disorders: No - PULMONARY Hx Respiratory Disorders: No - NEUROLOGICAL Hx Neurological Disorder: No - HEENT Hx HEENT Problems: No - RENAL Hx Chronic Kidney Disease: No - ENDOCRINE/METABOLIC Hx Endocrine Disorders: No - HEMATOLOGICAL/ONCOLOGICAL Hx Blood Transfusions: No Hx Blood Transfusion Reaction: No - INTEGUMENTARY Hx Dermatological Problems: No - MUSCULOSKELETAL/RHEUMATOLOGICAL Hx Musculoskeletal Disorders: No Hx Falls: No - GASTROINTESTINAL Hx Gastrointestinal Disorders: No - GENITOURINARY/GYNECOLOGICAL Hx Genitourinary Disorders: No - PSYCHIATRIC Hx Psychophysiologic Disorder: No Hx Substance Use: No - SURGICAL HISTORY Hx Appendectomy: Yes Other/Comment: small bowel obstruction - ANESTHESIA Hx Anesthesia: Yes Hx Anesthesia Reactions: No Hx Malignant Hyperthermia: No Meds Allergies/Adverse Reactions: Allergies Allergy/AdvReac Type Severity Reaction Status Date / Time No Known Allergies Allergy Verified 01/06/18 20:29 Physical Exam - Constitutional Appears: No Acute Distress - Head Exam Head Exam: ATRAUMATIC, NORMAL INSPECTION, NORMOCEPHALIC - Eye Exam Eye Exam: EOMI, Normal appearance, PERRL. absent: Conjunctival injection, Periorbital swelling, Periorbital tenderness, Scleral icterus Additional comments: No opthalmic ulcers. - ENT Exam ENT Exam: Mucous Membranes Moist Additional comments: Small, shallow ulcer noted at the right edge of mouth and underneath the tongue - Neck Exam Neck exam: Positive for: Full Rom. Negative for: Lymphadenopathy - Respiratory Exam Respiratory Exam: Clear to Auscultation Bilateral, NORMAL BREATHING PATTERN. ab sent: Accessory Muscle Use, Chest Wall Tenderness, Rales, Rhonchi, Wheezes, Respiratory Distress - Cardiovascular Exam Cardiovascular Exam: RRR, +S1, +S2 - GI/Abdominal Exam GI & Abdominal Exam: Normal Bowel Sounds, Soft, Tenderness (Periumbilical tenderness, mild ). absent: Bruit, Distended, Firm, Guarding, Organomegaly, Pulsatile Mass, Rebound, Rigid - Extremities Exam Extremities exam: Positive for: full ROM, normal capillary refill, normal inspection, pedal pulses present. Negative for: calf tenderness, joint swelling, pedal edema, tenderness - Back Exam Back exam: NORMAL INSPECTION - Neurological Exam Neurological exam: Alert, CN II-XII Intact, Oriented x3, Reflexes Normal - Psychiatric Exam Psychiatric exam: Normal Affect, Normal Mood - Skin Skin Exam: Dry, Intact, Normal Color, Warm Additional comments: No erythematous lesions on skin exam Results - Vital Signs Recent Vital Signs: Last Vital Signs Temp 98.8 F 11/27/18 19:32 Pulse 68 11/27/18 19:32 Resp 18 05/30/19 19:32 BP 97/66 L 11/27/18 19:32 Pulse Ox 97 11/27/18 19:32 - Labs Result Diagrams: 11/27/18 19:08 11/27/18 19:08 Labs: Laboratory Results - last 24 hr 11/27/18 11/27/18 11/27/18 19:08 19:08 19:08 WBC 8.8 RBC 5.71 Hgb 16.3 Hct 46.1 MCV 80.7 MCH 28.5 MCHC 35.4 RDW 12.3 Plt Count 300 MPV 10.2 Neut % (Auto) 54.0 Lymph % (Auto) 32.8 Christian % (Auto) 10.6 H Eos % (Auto) 2.4 Baso % (Auto) 0.2 Lymph # (Auto) 2.9 Christian # (Auto) 0.9 H Eos # (Auto) 0.2 Baso # (Auto) 0.02 Absolute Neuts (auto) 4.74 PT 12.6 H INR 1.14 APTT 36.6 Sodium 144 Potassium 4.0 Chloride 105 Carbon Dioxide 27 Anion Gap 16 BUN 17 Creatinine 0.8 Est GFR ( Amer) > 60 Est GFR (Non-Af Amer) > 60 Random Glucose 80 Calcium 9.7 Magnesium 2.3 H Total Bilirubin 0.9 AST 28 ALT 17 Alkaline Phosphatase 68 Troponin I < 0.01 Total Protein 8.7 H Albumin 4.8 Globulin 3.9 Albumin/Globulin Ratio 1.2 Lipase 89 Urine Color Urine Appearance Urine pH Ur Specific [place] Urine Protein Urine Glucose (UA) Urine Ketones Urine Blood Urine Nitrate Urine Bilirubin Urine Urobilinogen Ur Leukocyte Esterase 11/27/18 20:15 WBC RBC Hgb Hct MCV MCH MCHC RDW Plt Count MPV Neut % (Auto) Lymph % (Auto) Christian % (Auto) Eos % (Auto) Baso % (Auto) Lymph # (Auto) Christian # (Auto) Eos # (Auto) Baso # (Auto) Absolute Neuts (auto) PT INR APTT Sodium Potassium Chloride Carbon Dioxide Anion Gap BUN Creatinine Est GFR ( Amer) Est GFR (Non-Af Amer) Random Glucose Calcium Magnesium Total Bilirubin AST ALT Alkaline Phosphatase Troponin I Total Protein Albumin Globulin Albumin/Globulin Ratio Lipase Urine Color yellow Urine Appearance Clear Urine pH 7.5 Ur Specific [place] 1.015 Urine Protein Negative Urine Glucose (UA) Negative Urine Ketones Negative Urine Blood Negative Urine Nitrate Negative Urine Bilirubin Negative Urine Urobilinogen 0.2 Ur Leukocyte Esterase Negative Assessment & Plan - Assessment and Plan (Free Text) Assessment: Patient is a 33 y/o Greek Speaking male with PMHx of partial SBO and appendectomy who presents to the ED c/o yvette-umbilical abdominal pain x 2 days, constipation, and oral ulcers. Plan: Intractable Abdominal Pain with Oral Ulcers 2/2 Constipation vs PUD vs IBD vs Behcet's Disease - NPO - IVF NS @ 100 cc/hr - PTX 40mg IVP daily - Zofran prn for nausea/vomiting - Miralax BID - Colace BID - Magic Mouth Wash QID for oral ulcers - Tylenol 650mg q6 prn for mild pain control - ESR/CRP - trop neg x1 - UA negative for UTI - GI consulted (Dr. Ramírez) - CT A/P with IV Contrast: negative for acute disease - CXR: no active disease ppx: - scd - ptx Diet: NPO Dispo: will admit patient on med/surg. Case was discussed and reviewed with Attending Physician, Dr. Sanders <Igor Sanders - Last Filed: 11/29/18 06:41> Results - Vital Signs Recent Vital Signs: Last Vital Signs Temp 98.2 F 11/28/18 06:00 Pulse 66 11/28/18 06:00 Resp 20 11/28/18 06:00 BP 104/69 11/28/18 06:00 Pulse Ox 97 11/28/18 06:00 - Labs Result Diagrams: 11/27/18 19:08 11/27/18 19:08 Labs: Laboratory Results - last 24 hr 11/28/18 11/28/18 11/28/18 06:10 06:10 06:10 ESR 1 C-React Prot High Sens 4.78 H Lipase 64 Attending/Attestation - Attestation I have personally seen and examined this patient.: Yes I have fully participated in the care of the patient.: Yes I have reviewed all pertinent clinical information: Yes Notes (Text): 11/29/18 06:41 Seen and examined. Discussed with resident. A&P as above.
[2018-11-28 03:37] VITALS: RESP 20
[2018-11-28] MEDS ORDERED: Pneumococcal 23-Valent Vaccine IM ONE (03:37)
[2018-11-28 08:21] VITALS: BP 104/69; PULSE 66; TEMP 98.2; O2SAT 97
--- NOTE | 2018-11-28 09:03 | CT ---
Date of service: 11/27/2018 PROCEDURE: CT Abdomen and Pelvis with and without intravenous contrast HISTORY: periumbilical, rlq pain COMPARISON: None. TECHNIQUE: Axial images of the abdomen were obtained in the pre contrast, portal venous and delayed phases of enhancement. Coronal and sagittal reformats were generated. Contrast dose: Radiation dose: Total exam DLP = 335.06 mGy-cm. This CT exam was performed using one or more of the following dose reduction techniques: Automated exposure control, adjustment of the mA and/or kV according to patient size, and/or use of iterative reconstruction technique. FINDINGS: LOWER THORAX: Unremarkable. LIVER: Unremarkable. No gross lesion or ductal dilatation. GALLBLADDER AND BILE DUCTS: Unremarkable. PANCREAS: Unremarkable. No gross lesion or ductal dilatation. SPLEEN: Unremarkable. ADRENALS: Unremarkable. No mass. KIDNEYS AND URETERS: Unremarkable. No hydronephrosis. No solid mass. VASCULATURE: Unremarkable. No aortic aneurysm. No aortic atherosclerotic calcification or mural plaque present. BOWEL: Unremarkable. No obstruction. No gross mural thickening. APPENDIX: Normal appendix. PERITONEUM: Unremarkable. No free fluid. No free air. LYMPH NODES: Unremarkable. No enlarged lymph nodes. BLADDER: Unremarkable. REPRODUCTIVE: Unremarkable. BONES: No acute fracture. OTHER FINDINGS: None. IMPRESSION: Unremarkable pre and post contrast enhanced CT of the abdomen and pelvis.
[2018-11-28] MEDS: Aluminum Hydroxide/Magnesium 30 ML, DiphenhydrAMINE 75 MG, Lidocaine 2% Viscous 30 ML PO SCH ×2 (09:22→14:12)
--- NOTE | 2018-11-28 09:38 | CP.PCM.CON ---
<Krunal Mora - Last Filed: 11/28/18 12:18> History of Present Illness - History of Present Illness History of Present Illness: PGY6 GI Fellow Consult Note Patient is a 33yo Sinhala-speaking Maltese male with PMHx significant for appendicitis with appendectomy in 2016, chronic constipation and partial small bowel obstruction who presented to the ED with abdominal pain. The patient does not speak Spanish, thus [employer] interpreter deaf [id number] was utilized to assist with translation. Patient presents with two days of burning, cramping and occasionally stabbing periumbilical/epigastric abdominal pain. Symptoms began suddenly and since onset he has noticed worsening constipation and the development of oral ulcerations. Symptoms are not exacerbated by any particular food intake. He admits to frequent, intermittent episodes similar to this over the last 3 years following his appendectomy and has had a number of ED visits for the same problem. He has not started any new medications and does not use any OTC medications to treat his symptoms. During these episodes, he typically only has liquids and slowly advances his diet. Associated symptoms include vision changes and headaches. Denies any bloody stool, fever, chills, genital ulcers or lesions, nausea, vomiting. 12 system ROS performed and negative except where stated PMHx: See HPI PSHx: Appendectomy FHx: Discussed with patient - states son may have had H pylori gastritis Social: Denies tobacco, EtOH or illicit drug use Endo: No prior endoscopic evaluations Past Patient History - Infectious Disease Hx of Infectious Diseases: None - Tetanus Immunizations Tetanus Immunization: Unknown - Past Social History Smoking Status: Never Smoked - CARDIAC Hx Cardiac Disorders: No - PULMONARY Hx Respiratory Disorders: No - NEUROLOGICAL Hx Neurological Disorder: No - HEENT Hx HEENT Problems: No - RENAL Hx Chronic Kidney Disease: No - ENDOCRINE/METABOLIC Hx Endocrine Disorders: No - HEMATOLOGICAL/ONCOLOGICAL Hx Blood Disorders: No - INTEGUMENTARY Hx Dermatological Problems: No - MUSCULOSKELETAL/RHEUMATOLOGICAL Hx Musculoskeletal Disorders: No Hx Falls: No - GASTROINTESTINAL Hx Gastrointestinal Disorders: Yes Other/Comment: SBO 4 ys ago - GENITOURINARY/GYNECOLOGICAL Hx Genitourinary Disorders: Yes Other/Comment: appendectomy 4 yrs ago - PSYCHIATRIC Hx Psychophysiologic Disorder: No - SURGICAL HISTORY Hx Surgeries: Yes Hx Appendectomy: Yes - ANESTHESIA Hx Anesthesia: Yes Hx Anesthesia Reactions: No Hx Malignant Hyperthermia: No Meds Home Medications: Home Medication List Medication Instructions Recorded Confirmed Type Polyethylene Glycol 3350 [Miralax] 17 gm PO BID #30 powd.pack 11/28/18 Rx Allergies/Adverse Reactions: Allergies Allergy/AdvReac Type Severity Reaction Status Date / Time No Known Allergies Allergy Verified 01/06/18 20:29 - Medications Medications: Current Medications Acetaminophen (Tylenol 325mg Tab) 650 mg PO Q6H PRN PRN Reason: Pain, Mild (1-3) Last Admin: 11/28/18 09:22 Dose: 650 mg Al Hydrox/Mg Hydrox/Simethicone 30 ml/Diphenhydramine HCl 75 mg/Lidocaine 30 ml 0 ml PO QID [facility] Last Admin: 11/28/18 09:22 Dose: 10 bottle Docusate Sodium (Colace) 100 mg PO BID [facility] Last Admin: 11/28/18 09:10 Dose: 100 mg Sodium Chloride (Sodium Chloride 0.9%) 1,000 mls @ 100 mls/hr IV .Q10H [facility] Last Admin: 11/28/18 00:00 Dose: 100 mls/hr Ondansetron HCl (Zofran Inj) 4 mg IVP Q4H PRN PRN Reason: Nausea/Vomiting Pantoprazole Sodium (Protonix Inj) 40 mg IVP DAILY [facility] Last Admin: 11/28/18 09:09 Dose: 40 mg Polyethylene Glycol (Miralax) 17 gm PO BID [facility] Last Admin: 11/28/18 09:10 Dose: 17 gm Physical Exam - Constitutional Appears: Non-toxic, No Acute Distress - Eye Exam Eye Exam: EOMI, PERRL - ENT Exam ENT Exam: Mucous Membranes Moist - Respiratory Exam Respiratory Exam: Clear to Auscultation Bilateral. absent: Rales, Rhonchi, Wheezes - Cardiovascular Exam Cardiovascular Exam: RRR, +S1, +S2 - GI/Abdominal Exam GI & Abdominal Exam: Normal Bowel Sounds, Soft, Tenderness (epigastric). absent: Distended, Firm, Guarding, Organomegaly, Rigid - Extremities Exam Extremities exam: Positive for: normal inspection. Negative for: pedal edema - Neurological Exam Neurological exam: Alert, Oriented x3 - Psychiatric Exam Psychiatric exam: Normal Affect, Normal Mood - Skin Skin Exam: Dry, Warm Results - Vital Signs Recent Vital Signs: Last Vital Signs Temp 98.2 F 11/28/18 06:00 Pulse 66 11/28/18 06:00 Resp 20 11/28/18 06:00 BP 104/69 11/28/18 06:00 Pulse Ox 97 11/28/18 06:00 - Labs Result Diagrams: 11/27/18 19:08 11/27/18 19:08 Labs: Laboratory Results - last 24 hr 11/27/18 11/27/18 11/27/18 19:08 19:08 19:08 WBC 8.8 RBC 5.71 Hgb 16.3 Hct 46.1 MCV 80.7 MCH 28.5 MCHC 35.4 RDW 12.3 Plt Count 300 MPV 10.2 Neut % (Auto) 54.0 Lymph % (Auto) 32.8 Lee % (Auto) 10.6 H Eos % (Auto) 2.4 Baso % (Auto) 0.2 Lymph # (Auto) 2.9 Lee # (Auto) 0.9 H Eos # (Auto) 0.2 Baso # (Auto) 0.02 Absolute Neuts (auto) 4.74 ESR PT 12.6 H INR 1.14 APTT 36.6 Sodium 144 Potassium 4.0 Chloride 105 Carbon Dioxide 27 Anion Gap 16 BUN 17 Creatinine 0.8 Est GFR ( Amer) > 60 Est GFR (Non-Af Amer) > 60 Random Glucose 80 Calcium 9.7 Magnesium 2.3 H Total Bilirubin 0.9 AST 28 ALT 17 Alkaline Phosphatase 68 Troponin I < 0.01 Total Protein 8.7 H Albumin 4.8 Globulin 3.9 Albumin/Globulin Ratio 1.2 Lipase 89 Urine Color Urine Appearance Urine pH Ur Specific [place] Urine Protein Urine Glucose (UA) Urine Ketones Urine Blood Urine Nitrate Urine Bilirubin Urine Urobilinogen Ur Leukocyte Esterase 11/27/18 11/28/18 11/28/18 20:15 06:10 06:10 WBC RBC Hgb Hct MCV MCH MCHC RDW Plt Count MPV Neut % (Auto) Lymph % (Auto) Lee % (Auto) Eos % (Auto) Baso % (Auto) Lymph # (Auto) Lee # (Auto) Eos # (Auto) Baso # (Auto) Absolute Neuts (auto) ESR 1 PT INR APTT Sodium Potassium Chloride Carbon Dioxide Anion Gap BUN Creatinine Est GFR ( Amer) Est GFR (Non-Af Amer) Random Glucose Calcium Magnesium Total Bilirubin AST ALT Alkaline Phosphatase Troponin I Total Protein Albumin Globulin Albumin/Globulin Ratio Lipase 64 Urine Color yellow Urine Appearance Clear Urine pH 7.5 Ur Specific [place] 1.015 Urine Protein Negative Urine Glucose (UA) Negative Urine Ketones Negative Urine Blood Negative Urine Nitrate Negative Urine Bilirubin Negative Urine Urobilinogen 0.2 Ur Leukocyte Esterase Negative Assessment & Plan - Assessment and Plan (Free Text) Assessment: Patient is a 33yo Sinhala-speaking Maltese male with PMHx significant for appendicitis with appendectomy in 2016, chronic constipation and partial small bowel obstruction who presented to the ED with abdominal pain -Abdominal pain -Constipation -Oral ulcers -H/O SBO Plan: -Recommend ongoing bowel regimen as fecal retention noted on right colon on CT scan as with prior scans -Start Pantoprazole 40mg PO QAM -Following PPI and laxative trials, if symptoms persist, consider outpatient e lective endoscopic evaluation to rule out IBD as etiology for underlying issues -If concern for Behcet's syndrome exists, patient would benefit from Rheumatology consultation - no h/o genital ulceration noted -Diet as tolerated -OK to D/C from GI standpoint with outpatient follow up recommended - Date & Time Date: 11/28/18 Time: 07:30 <Karsten Ramírez - Last Filed: 11/28/18 13:27> Meds - Medications Medications: Current Medications Acetaminophen (Tylenol 325mg Tab) 650 mg PO Q6H PRN PRN Reason: Pain, Mild (1-3) Last Admin: 11/28/18 09:22 Dose: 650 mg Al Hydrox/Mg Hydrox/Simethicone 30 ml/Diphenhydramine HCl 75 mg/Lidocaine 30 ml 0 ml PO QID [facility] Last Admin: 11/28/18 09:22 Dose: 10 bottle Docusate Sodium (Colace) 100 mg PO BID [facility] Last Admin: 11/28/18 09:10 Dose: 100 mg Sodium Chloride (Sodium Chloride 0.9%) 1,000 mls @ 100 mls/hr IV .Q10H [facility] Last Admin: 11/28/18 00:00 Dose: 100 mls/hr Ondansetron HCl (Zofran Inj) 4 mg IVP Q4H PRN PRN Reason: Nausea/Vomiting Pantoprazole Sodium (Protonix Ec Tab) 40 mg PO 0600 [facility] Polyethylene Glycol (Miralax) 17 gm PO BID [facility] Last Admin: 11/28/18 09:10 Dose: 17 gm Results - Vital Signs Recent Vital Signs: Last Vital Signs Temp 98.2 F 11/28/18 06:00 Pulse 66 11/28/18 06:00 Resp 20 11/28/18 06:00 BP 104/69 11/28/18 06:00 Pulse Ox 97 11/28/18 06:00 - Labs Result Diagrams: 11/27/18 19:08 11/27/18 19:08 Labs: Laboratory Results - last 24 hr 11/27/18 11/27/18 11/27/18 19:08 19:08 19:08 WBC 8.8 RBC 5.71 Hgb 16.3 Hct 46.1 MCV 80.7 MCH 28.5 MCHC 35.4 RDW 12.3 Plt Count 300 MPV 10.2 Neut % (Auto) 54.0 Lymph % (Auto) 32.8 Lee % (Auto) 10.6 H Eos % (Auto) 2.4 Baso % (Auto) 0.2 Lymph # (Auto) 2.9 Lee # (Auto) 0.9 H Eos # (Auto) 0.2 Baso # (Auto) 0.02 Absolute Neuts (auto) 4.74 ESR PT 12.6 H INR 1.14 APTT 36.6 Sodium 144 Potassium 4.0 Chloride 105 Carbon Dioxide 27 Anion Gap 16 BUN 17 Creatinine 0.8 Est GFR ( Amer) > 60 Est GFR (Non-Af Amer) > 60 Random Glucose 80 Calcium 9.7 Magnesium 2.3 H Total Bilirubin 0.9 AST 28 ALT 17 Alkaline Phosphatase 68 Troponin I < 0.01 C-React Prot High Sens Total Protein 8.7 H Albumin 4.8 Globulin 3.9 Albumin/Globulin Ratio 1.2 Lipase 89 Urine Color Urine Appearance Urine pH Ur Specific [place] Urine Protein Urine Glucose (UA) Urine Ketones Urine Blood Urine Nitrate Urine Bilirubin Urine Urobilinogen Ur Leukocyte Esterase 11/27/18 11/28/18 11/28/18 20:15 06:10 06:10 WBC RBC Hgb Hct MCV MCH MCHC RDW Plt Count MPV Neut % (Auto) Lymph % (Auto) Lee % (Auto) Eos % (Auto) Baso % (Auto) Lymph # (Auto) Lee # (Auto) Eos # (Auto) Baso # (Auto) Absolute Neuts (auto) ESR 1 PT INR APTT Sodium Potassium Chloride Carbon Dioxide Anion Gap BUN Creatinine Est GFR ( Amer) Est GFR (Non-Af Amer) Random Glucose Calcium Magnesium Total Bilirubin AST ALT Alkaline Phosphatase Troponin I C-React Prot High Sens 4.78 H Total Protein Albumin Globulin Albumin/Globulin Ratio Lipase Urine Color yellow Urine Appearance Clear Urine pH 7.5 Ur Specific [place] 1.015 Urine Protein Negative Urine Glucose (UA) Negative Urine Ketones Negative Urine Blood Negative Urine Nitrate Negative Urine Bilirubin Negative Urine Urobilinogen 0.2 Ur Leukocyte Esterase Negative 11/28/18 06:10 WBC RBC Hgb Hct MCV MCH MCHC RDW Plt Count MPV Neut % (Auto) Lymph % (Auto) Lee % (Auto) Eos % (Auto) Baso % (Auto) Lymph # (Auto) Lee # (Auto) Eos # (Auto) Baso # (Auto) Absolute Neuts (auto) ESR PT INR APTT Sodium Potassium Chloride Carbon Dioxide Anion Gap BUN Creatinine Est GFR ( Amer) Est GFR (Non-Af Amer) Random Glucose Calcium Magnesium Total Bilirubin AST ALT Alkaline Phosphatase Troponin I C-React Prot High Sens Total Protein Albumin Globulin Albumin/Globulin Ratio Lipase 64 Urine Color Urine Appearance Urine pH Ur Specific [place] Urine Protein Urine Glucose (UA) Urine Ketones Urine Blood Urine Nitrate Urine Bilirubin Urine Urobilinogen Ur Leukocyte Esterase Attending/Attestation - Attestation I have personally seen and examined this patient.: Yes I have fully participated in the care of the patient.: Yes I have reviewed all pertinent clinical information: Yes Notes (Text): 11/28/18 13:22 I have seen and examined patient with GI fellow. Agree with above documentation with the following additions. In brief, this is a 33 year old male with history of appendectomy, constipation who presents to hospital with complaint of abdominal pain. He reports progressive young-umbilical pain for the past 2 days associated with constipation and nausea. He denies vomiting, fever/chills, weight loss, rectal bleeding, change in bowel habits, or NSAID use. He does note recent development of oral ulcers. He has had similar pain episodes over the past 3 years which seem to have become more frequent following appendectomy. No prior endoscopic evaluation. Abdominal pain - recurrent Constipation CT imaging reviewed by me showing no gross GI abnormalities - Diet as tolerated - Continue with PPI therapy - Given recurrent abdominal pain in setting of recent oral ulcers, would suggest additional outpatient workup for potential underlying inflammatory bowel disease - Maintain bowel regimen to prevent constipation, increase PO water and fiber intake - Ok to discharge home from GI standpoint, would certainly suggest additional outpatient follow up. Will sign off case, please reconsult as necessary, thank you.
[2018-11-28] MEDS ORDERED: POLYETHYLENE GLYCOL 3350 17 GM/Dose PACKET PO SCH (10:00)
--- NOTE | 2018-11-28 10:52 | RAD ---
Date of service: 11/27/2018 HISTORY: Abdominal pain COMPARISON: 07/14/2017 FINDINGS: LUNGS: The lungs are well inflated and clear. PLEURA: No pleural effusions or pneumothorax. CARDIOVASCULAR: The heart is normal in size. No aortic atherosclerotic calcifications present. OSSEOUS STRUCTURES: Within normal limits for the patient's age. VISUALIZED UPPER ABDOMEN: Normal. OTHER FINDINGS: None. IMPRESSION: No active pulmonary disease.
--- NOTE | 2018-11-28 11:46 | CARD ---
APPROVED REPORT Date of service: 11/27/2018 EKG Measurement Heart [id number] OR [id number] <Conclusion> Normal sinus rhythm Normal ECG
--- NOTE | 2018-11-28 12:10 | CP.PCM.DIS ---
<KeeganLopez - Last Filed: 11/28/18 15:08> Provider - Provider Date of Admission: 11/27/18 23:40 Attending physician: Lucila Lopez MD Consults: 11/28/18 00:41 Physician Consult Routine Comment: Consulting Provider: Karsten Ramírez Consulting Physician: Karsten Ramírez Reason for Consult: intractable abdominal pain; consider PUD/IBD/Behcet dz Time Spent in preparation of Discharge (in minutes): 45 Hospital Course - Lab Results Lab Results: Most Recent Lab Values WBC 8.8 10^3/uL (4.5-11.0) 11/27/18 19:08 RBC 5.71 10^6/uL (3.5-6.1) 11/27/18 19:08 Hgb 16.3 g/dL (14.0-18.0) 11/27/18 19:08 Hct 46.1 % (42.0-52.0) 11/27/18 19:08 MCV 80.7 fl (80.0-105.0) 11/27/18 19:08 MCH 28.5 pg (25.0-35.0) 11/27/18 19:08 MCHC 35.4 g/dl (31.0-37.0) 11/27/18 19:08 RDW 12.3 % (11.5-14.5) 11/27/18 19:08 Plt Count 300 10^3/uL (120.0-450.0) 11/27/18 19:08 MPV 10.2 fl (7.0-11.0) 11/27/18 19:08 Neut % (Auto) 54.0 % (50.0-68.0) 11/27/18 19:08 Lymph % (Auto) 32.8 % (22.0-35.0) 11/27/18 19:08 [place] % (Auto) 10.6 % (1.0-6.0) H 11/27/18 19:08 Eos % (Auto) 2.4 % (1.5-5.0) 11/27/18 19:08 Baso % (Auto) 0.2 % (0.0-3.0) 11/27/18 19:08 Lymph # (Auto) 2.9 (1.2-3.4) 11/27/18 19:08 [place] # (Auto) 0.9 (0.1-0.6) H 11/27/18 19:08 Eos # (Auto) 0.2 (0.0-0.7) 11/27/18 19:08 Baso # (Auto) 0.02 K/mm3 (0.0-2.0) 11/27/18 19:08 Absolute Neuts (auto) 4.74 (1.4-6.5) 11/27/18 19:08 ESR 1 mm/hr (0.0-15.0) 11/28/18 06:10 PT 12.6 SECONDS (9.4-12.5) H 11/27/18 19:08 INR 1.14 11/27/18 19:08 APTT 36.6 Seconds (26.9-38.3) 11/27/18 19:08 Sodium 144 mmol/L (132-148) 11/27/18 19:08 Potassium 4.0 mmol/L (3.6-5.0) 11/27/18 19:08 Chloride 105 mmol/L (98-107) 11/27/18 19:08 Carbon Dioxide 27 mmol/L (21-33) 11/27/18 19:08 Anion Gap 16 (10-20) 11/27/18 19:08 BUN 17 mg/dL (7-21) 11/27/18 19:08 Creatinine 0.8 mg/dl (0.8-1.5) 11/27/18 19:08 Est GFR ( Amer) > 60 11/27/18 19:08 Est GFR (Non-Af Amer) > 60 11/27/18 19:08 Random Glucose 80 mg/dL (70-110) 11/27/18 19:08 Calcium 9.7 mg/dL (8.4-10.5) 11/27/18 19:08 Magnesium 2.3 mg/dL (1.7-2.2) H 11/27/18 19:08 Total Bilirubin 0.9 mg/dL (0.2-1.3) 11/27/18 19:08 AST 28 U/L (17-59) 11/27/18 19:08 ALT 17 U/L (7-56) 11/27/18 19:08 Alkaline Phosphatase 68 U/L (38-126) 11/27/18 19:08 Troponin I < 0.01 ng/mL 11/27/18 19:08 Total Protein 8.7 g/dL (5.8-8.3) H 11/27/18 19:08 Albumin 4.8 g/dL (3.0-4.8) 11/27/18 19:08 Globulin 3.9 gm/dL 11/27/18 19:08 Albumin/Globulin Ratio 1.2 (1.1-1.8) 11/27/18 19:08 Lipase 64 U/L (23-300) 11/28/18 06:10 Urine Color yellow (YELLOW) 11/27/18 20:15 Urine Appearance Clear (CLEAR) 11/27/18 20:15 Urine pH 7.5 (4.7-8.0) 11/27/18 20:15 Ur Specific [place] 1.015 (1.005-1.035) 11/27/18 20:15 Urine Protein Negative mg/dL (<30 mg/dL) 11/27/18 20:15 Urine Glucose (UA) Negative mg/dL (NEGATIVE) 11/27/18 20:15 Urine Ketones Negative mg/dL (NEGATIVE) 11/27/18 20:15 Urine Blood Negative (NEGATIVE) 11/27/18 20:15 Urine Nitrate Negative (NEGATIVE) 11/27/18 20:15 Urine Bilirubin Negative (NEGATIVE) 11/27/18 20:15 Urine Urobilinogen 0.2 E.U./dL (<1 E.U./dL) 11/27/18 20:15 Ur Leukocyte Esterase Negative Johanna/uL (NEGATIVE) 11/27/18 20:15 - Hospital Course Hospital Course: 33 y/o Belarusian Speaking male with PMHx of partial SBO and appendectomy who presented to the ED c/o young-umbilical abdominal pain x 2 days, constipation, and oral ulcers. IVF, protonix, zofran, NPO, pain med, miralax and colace given. CT A/P unremarkable with no bowel obstruction. Patient was seen by GI who recommended laxative trials, PPI as outpatient. Patient has no genital ulcers. His oral ulcers are likely aphthous ulcers. Patient reported improvement of is symptoms with the above treatment regimen. He tolerated his regular diet. Recommended to f/u with GI for colonscopy to r/o bowel pathology. Frequent hydration, stool softner, laxatives recommended as needed. Patient is hemodynamically stable, afebrile, asymptomatic, clinically optimized for discharge today. Additional d/c instructions as below. Discharge Exam - Head Exam Head Exam: ATRAUMATIC, NORMAL INSPECTION, NORMOCEPHALIC - Eye Exam Eye Exam: EOMI, Normal appearance, PERRL Pupil Exam: NORMAL ACCOMODATION, PERRL - ENT Exam ENT Exam: Mucous Membranes Moist Additional comments: lower lip ulcer - Respiratory Exam Respiratory Exam: Clear to PA & Lateral, NORMAL BREATHING PATTERN - Cardiovascular Exam Cardiovascular Exam: REGULAR RHYTHM, +S1, +S2 - GI/Abdominal Exam GI & Abdominal Exam: Normal Bowel Sounds - Extremities Exam Extremities exam: full ROM, normal inspection - Back Exam Back exam: FULL ROM - Neurological Exam Neurological exam: Alert, CN II-XII Intact, Normal Gait, Oriented x3, Reflexes Normal - Psychiatric Exam Psychiatric exam: Normal Affect, Normal Mood - Skin Skin Exam: Dry, Intact, Normal Color, Warm Discharge Plan - Discharge Medications Prescriptions: Polyethylene Glycol 3350 [Miralax] 17 gm PO BID #30 powd.pack - Follow Up Plan Condition: STABLE Disposition: HOME/ ROUTINE Instructions: Acute Abdomen (Belly Pain), Adult (DC) Additional Instructions: - Follow up with Primary care doctor in 3-5 days. You are given an appointment with [facility] on December 04, 2018 at 3 pm - Take miralax two times a day as needed for constipation. - Follow up with GI doctor Airam at [facility] for a colonoscopy. - Return to ER for any worsening of symptoms. Referrals: [facility] at [facility] [Outside] Refugio Alegria MD [IM] - <Yee Schwarz - Last Filed: 11/28/18 18:04> Provider - Provider Date of Admission: 11/27/18 23:40 Attending physician: Lucila Lopez MD Hospital Course - Lab Results Lab Results: Most Recent Lab Values WBC 8.8 10^3/uL (4.5-11.0) 11/27/18 19:08 RBC 5.71 10^6/uL (3.5-6.1) 11/27/18 19:08 Hgb 16.3 g/dL (14.0-18.0) 11/27/18 19:08 Hct 46.1 % (42.0-52.0) 11/27/18 19:08 MCV 80.7 fl (80.0-105.0) 11/27/18 19:08 MCH 28.5 pg (25.0-35.0) 11/27/18 19:08 MCHC 35.4 g/dl (31.0-37.0) 11/27/18 19:08 RDW 12.3 % (11.5-14.5) 11/27/18 19:08 Plt Count 300 10^3/uL (120.0-450.0) 11/27/18 19:08 MPV 10.2 fl (7.0-11.0) 11/27/18 19:08 Neut % (Auto) 54.0 % (50.0-68.0) 11/27/18 19:08 Lymph % (Auto) 32.8 % (22.0-35.0) 11/27/18 19:08 [place] % (Auto) 10.6 % (1.0-6.0) H 11/27/18 19:08 Eos % (Auto) 2.4 % (1.5-5.0) 11/27/18 19:08 Baso % (Auto) 0.2 % (0.0-3.0) 11/27/18 19:08 Lymph # (Auto) 2.9 (1.2-3.4) 11/27/18 19:08 [place] # (Auto) 0.9 (0.1-0.6) H 11/27/18 19:08 Eos # (Auto) 0.2 (0.0-0.7) 11/27/18 19:08 Baso # (Auto) 0.02 K/mm3 (0.0-2.0) 11/27/18 19:08 Absolute Neuts (auto) 4.74 (1.4-6.5) 11/27/18 19:08 ESR 1 mm/hr (0.0-15.0) 11/28/18 06:10 PT 12.6 SECONDS (9.4-12.5) H 11/27/18 19:08 INR 1.14 11/27/18 19:08 APTT 36.6 Seconds (26.9-38.3) 11/27/18 19:08 Sodium 144 mmol/L (132-148) 11/27/18 19:08 Potassium 4.0 mmol/L (3.6-5.0) 11/27/18 19:08 Chloride 105 mmol/L (98-107) 11/27/18 19:08 Carbon Dioxide 27 mmol/L (21-33) 11/27/18 19:08 Anion Gap 16 (10-20) 11/27/18 19:08 BUN 17 mg/dL (7-21) 11/27/18 19:08 Creatinine 0.8 mg/dl (0.8-1.5) 11/27/18 19:08 Est GFR ( Amer) > 60 11/27/18 19:08 Est GFR (Non-Af Amer) > 60 11/27/18 19:08 Random Glucose 80 mg/dL (70-110) 11/27/18 19:08 Calcium 9.7 mg/dL (8.4-10.5) 11/27/18 19:08 Magnesium 2.3 mg/dL (1.7-2.2) H 11/27/18 19:08 Total Bilirubin 0.9 mg/dL (0.2-1.3) 11/27/18 19:08 AST 28 U/L (17-59) 11/27/18 19:08 ALT 17 U/L (7-56) 11/27/18 19:08 Alkaline Phosphatase 68 U/L (38-126) 11/27/18 19:08 Troponin I < 0.01 ng/mL 11/27/18 19:08 C-React Prot High Sens 4.78 mg/L (1.00-3.00) H 11/28/18 06:10 Total Protein 8.7 g/dL (5.8-8.3) H 11/27/18 19:08 Albumin 4.8 g/dL (3.0-4.8) 11/27/18 19:08 Globulin 3.9 gm/dL 11/27/18 19:08 Albumin/Globulin Ratio 1.2 (1.1-1.8) 11/27/18 19:08 Lipase 64 U/L (23-300) 11/28/18 06:10 Urine Color yellow (YELLOW) 11/27/18 20:15 Urine Appearance Clear (CLEAR) 11/27/18 20:15 Urine pH 7.5 (4.7-8.0) 11/27/18 20:15 Ur Specific [place] 1.015 (1.005-1.035) 11/27/18 20:15 Urine Protein Negative mg/dL (<30 mg/dL) 11/27/18 20:15 Urine Glucose (UA) Negative mg/dL (NEGATIVE) 11/27/18 20:15 Urine Ketones Negative mg/dL (NEGATIVE) 11/27/18 20:15 Urine Blood Negative (NEGATIVE) 11/27/18 20:15 Urine Nitrate Negative (NEGATIVE) 11/27/18 20:15 Urine Bilirubin Negative (NEGATIVE) 11/27/18 20:15 Urine Urobilinogen 0.2 E.U./dL (<1 E.U./dL) 11/27/18 20:15 Ur Leukocyte Esterase Negative Johanna/uL (NEGATIVE) 11/27/18 20:15 Attending/Attestation - Attestation I have personally seen and examined this patient.: Yes I have fully participated in the care of the patient.: Yes I have reviewed all pertinent clinical information, including history, physical exam and plan: Yes Notes (Text): 11/28/18 18:02 Attending note; Patient seen and examined with resident. Patient is alert and awake. Denies any abdominal pain, nausea, vomiting. Complaining of ulceration in the lower lip. Denies any fevers, chills. Denies any genitourinary symptoms or ulceration. Patient is a 33-year-old Bel[place]ian Speaking male with PMHx of partial SBO and appendectomy who presented to the ED c/o young-umbilical abdominal pain x 2 days, constipation, and oral ulcers. 1. Abdominal pain; abdominal CT showed is negative for any acute findings . Chronic constipation suspected. Patient started on MiraLAX. Started on regular diet. 2. Aphthous ulceration; patient has no significant family history of colon cancer or IBD. Patient was evaluated by GI today. Advised to follow-up with [facility] clinic. Might need work-up to rule out IBD. Diagnosis, follow-up plan discussed with patient in detail by Belarusian speaking resident. Patient will be referred to [facility] clinic upon discharge. Discharge home today.
[2018-11-28] MEDS: Sodium Chloride 0.9% 1,000 ML IV SCH ×2 (14:12)
[2018-11-29] MEDS ORDERED: Pantoprazole 40 mg EC Tab PO SCH (06:00)
== END 2018-11-28 16:29 | disposition home or self-care (01) ==
LOC: ED 16:08 → ERH 23:40 → 3RSO 11-28 03:40
PROVIDERS: ADMIT Internal Medicine; ATTEND Internal Medicine
DX: K59.09 Other constipation (principal); K12.0 Recurrent oral aphthae; K12.1 Other forms of stomatitis
CPT/HCPCS: 36415; 71045; 74177; 80053; 81003; 83690; 83735; 84484; 85025; 85610; 85651; 85730; 86140; 93005; 96361; 96374; 96375; 99284; C9113; G0378; J1885; J7030; Q9967